=== PATIENT | male | born 1940 | race Caucasian/White ===

== ENCOUNTER → 2020-04-22 08:52 | Outpatient (BNVA) | payer MEDICARE, OTHER, SELFPAY | PROVIDERS: Referring Provider Nurse Practitioner Family; Visit Provider Podiatrist Foot & Ankle Surgery | DX: M79.671 Pain in right foot (principal); M79.672 Pain in left foot; M77.32 Calcaneal spur, left foot; M77.31 Calcaneal spur, right foot | CPT/HCPCS: 73630 ==

== ENCOUNTER → 2020-06-18 08:53 | Outpatient (BNVA) | payer MEDICARE, OTHER, SELFPAY | PROVIDERS: Referring Provider Dermatology; Visit Provider Dermatology | DX: L57.0 Actinic keratosis (principal); L82.1 Other seborrheic keratosis; L21.9 Seborrheic dermatitis, unspecified; Z12.83 Encounter for screening for malignant neoplasm of skin | CPT/HCPCS: 17000; 17003; 99203 ==

== ENCOUNTER 2020-09-23 12:25 | Outpatient (CLI) | payer MEDICARE, OTHER, SELFPAY ==
[2020-09-23 13:01] LABS: Basophils # 0.1 10^3/uL (0.0-0.1); Basophils % 0.8 %; Hematocrit 47.1 % (42.0-52.0); Hemoglobin 15.3 g/dL (11.7-16.6); Lymphocytes # 2.6 10^3/uL (0.8-4.8); Lymphocytes % 29.8 %; Mean Corpuscular HGB Conc 32.5 g/dL (30.0-36.0); Mean Corpuscular Hemoglobin 29.1 pg (28.0-34.0); Mean Corpuscular Volume 89.5 fL (80-94); Mean Platelet Volume 10.8 fL (7.4-10.4); Monocytes # 0.6 10^3/uL (0.2-0.9); Monocytes % 7.3 %; Neutrophils # 5.31 10^3/uL (1.8-7.7); Neutrophils % 61.8 %; Nucleated Red Blood Cells % 0 %; Platelet Count 197 10^3/cmm (130-400); Red Blood Count 5.26 10^6/uL (4.1-5.3); Red Cell Distribution Width 13.6 % (12.1-15.1); White Blood Count 8.6 10^3/uL (4.0-10.0)
[2020-09-23 13:40] LABS: 25 Hydroxy Vitamin D 27 ng/mL (30-100); Alanine Aminotransferase 14 U/L (0-41); Albumin Level 4.1 g/dL (3.5-5.2); Alkaline Phosphatase 52 IU/L (40-130); Anion Gap 10.8 (5-19); Aspartate Amino Transferase 17 U/L (0-40); Blood Urea Nitrogen 17 mg/dL (8-23); Calcium 9.3 mg/dL (8.5-10.5); Carbon Dioxide 29 mmol/L (22-29); Chloride 95 mmol/L (98-107); Globulin 2.4 g/dL (1.3-4.6); Glucose 95 mg/dL (65-115); Osmolality Calculated 273 mOsm/kg (285-295); Potassium 3.8 mmol/L (3.5-5.1); Sodium 131 mmol/L (136-145); Total Bilirubin 0.6 mg/dL (0.15-1.2); Total Protein 6.5 g/dL (6.6-8.7)
[2020-09-23 14:06] LABS: Carcinoembryonic Antigen 1.8 ng/mL (0.0-4.7)
--- NOTE | 2020-09-27 11:55 | ONC FU_ITS ---
Dr. Lynne Patient Follow-Up Note Patient: Rosana Ruiz Unit #: [id number]: 1940 Dicatated By: Keith Lynne M.D.Date of Visit:Sep 23, 2020 Onc Med Follow-up/Prog Note Chief Complaint: Colon cancer. 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 He had presented with rectal bleeding. Colonoscopy showed a 4-5 cm malignant mass in the cecum. CEA was reportedly low. On 11/07/2014 he underwent right hemicolectomy by Dr. Lance in [place], [place]. The surgical pathology showed 3.2 cm transmural moderately differentiated adenocarcinoma with lymphovascular invasion, minimal extracellular mucin production, and negative margins. A total of 28 lymph nodes harvested were negative for metastatic disease. MSI status was not available. His staging PET/CT on 12/01/2014 was negative for metastatic disease. He was evaluated by Dr. Dumont. No adjuvant chemotherapy was recommended. He has been followed on observation/expectant management. His other medical illnesses include hypertension, hyperlipidemia, and GERD. He has a history of smoking 1 pack of cigarettes daily for 25 years, but he quit smoking 35 years ago. INTERIM HISTORY: Restaging CT of the abdomen and pelvis on 02/06/2016 was negative for metastatic disease. It showed significant coronary artery atherosclerosis, mild splenomegaly and multiple cystic stable renal cysts. CEA was 1.2. He had surveillance colonoscopy in January 2016. Surveillance CT scans of chest, abdomen, and pelvis on 08/13/2017 showed no evidence of tumor recurrence. There was a new compression fracture deformity of the T9 vertebral body with estimated 15-20% loss of height. Dexa scan on 08/23/2017 showed T-score 0.1 in the lumbar spine and -1.9 in both right and left hips. Repeat CT scans of the chest, abdomen, and pelvis on 08/08/2018 showed no evidence of recurrent or metastatic disease. Surveillance CT scans on 09/14/2019 showed no evidence of a neoplastic process in the chest, abdomen, or pelvis. Repeat DEXA scan showed T score -2.0 and the left proximal femur and -2.1 in the right proximal femur. He continued on observation/expectant management. He is seen for a followup visit. He has been feeling pretty good generally. His energy level is okay. He is able to do light work. ECOG score is 1. Appetite is good. He has no fever or night sweats. He has a little bit of a COPD cough. He does not complain of shortness of breath or chest pain. He always has acid reflux, but he manages adequately with [id number] Pepcid. He has no other GI complaints. Bladder function remains adequate though he does tend to have urgency at night. He has arthritis pain in his right knee. He has neuropathy in his lower legs and feet. Medications: Cholecalciferol 1 (3000 Units) Tablet Oral daily, Crestor Tablet Oral daily, Diclofenac Potassium Tablet Oral, Lisinopril-Hydrochlorothiazide Tablet Oral daily, Norvasc 1 (5 mg) Tablet Oral daily, RaNITidine HCl Capsule Oral b.i.d., Spiriva Respimat 1 Puff(s) (of 1.25 mcg/act) Aerosol, solution Inhalation b.i.d., Timolol Maleate 1 (10 mg) Tablet Oral daily Allergies: No Known Allergies. Review of Systems: Constitutional - His energy has been okay. He still does light work. Appetite is good and weight is stable. No fever, night sweats, or hot flashes. ECOG score is 1, ENMT - No sinus congestion/drainage. No mouth sores. No sore throat or difficulty swallowing, Hematologic/Lymphatic - No abnormal bruising or bleeding, Respiratory - No shortness of breath. He has a little bit of COPD cough. No pleuritic pain or hemoptysis, Cardiovascular - No angina pain. No palpitations, Gastrointestinal - No nausea or vomiting. He always has acid reflux, but he manages it adequately with [id number] Pepcid. No diarrhea or constipation. No blood in the stool or black stools, Genitourinary (M) - No dysuria or hematuria. No urinary frequency. He sometimes has urgency, but no incontinence, Musculoskeletal - He has some joint pain, mainly in his right knee and in his feet, Neurologic - No headache or dizziness. He has some neuropathy in the lower legs and feet, Psychiatric - No anxiety or depression. No insomnia. Vital Signs: Performed on Sep 23, 2020 14:19 Height - 72.00 in Weight - 221.8 lbs (LOW) BSA - 2.23 sq.m BMI - 30.08 (HIGH) Temperature - 97.5 F (LOW) Respiration - 18 /min BP - 155/83 mm(hg) (HIGH) Physical Examination: Constitutional - He looks good generally, Eyes - Sclerae nonicteric. Conjunctivae clear, ENMT - No lesions noted in the oral cavity, Hematologic/Lymphatic - No cervical, clavicular, or axillary adenopathy, Respiratory - Lungs are clear with slightly diminished air movement bilaterally, Cardiovascular - Heart rhythm is regular. There is no murmur, gallop, or rub noted, Abdomen - Soft. Liver and spleen are not enlarged. There is no abdominal mass or ascites noted and there is no inguinal adenopathy, Extremities - There are venous stasis changes bilaterally and there is mild lower extremity edema, Neurologic - No focal neurologic deficits noted. Lab/Imaging: Test performed on Sep 23, 2020 12:38 Sodium 131 mmol/L Vitamin D (25-Hydroxy), Total 27 ng/mL Potassium 3.8 mmol/L Chloride 95 mmol/L CO2 29 mmol/L Anion Gap 10.8 BUN 17 mg/dL Creatinine 1.1 mg/dL Cr Clearance (Est) 78.76 mL/min Glucose 95 mg/dL Osmolality - Calculated 273 mOsm/kg Calcium 9.3 mg/dL Protein, Total 6.5 g/dL Albumin 4.1 g/dL Globulin 2.4 g/dL Bilirubin, Total 0.6 mg/dL ALT (SGPT) 14 U/L AST (SGOT) 17 U/L Alkaline Phosphatase 52 IU/L WBC 8.6 10 3/uL RBC 5.26 10 6/uL HGB 15.3 g/dL HCT 47.1 % MCV 89.5 fL MCH 29.1 pg MCHC 32.5 g/dL RDW 13.6 % Platelet Count 197 10 3/cmm MPV 10.8 fL Neutrophils 5.31 10 3/uL Lymphocytes 2.6 10 3/uL Monocytes 0.6 10 3/uL Eosinophils 0.0 10 3/uL Basophils 0.1 10 3/uL Neutrophil % 61.8 % Lymphocyte % 29.8 % Monocyte % 7.3 % Eosinophil % 0.0 % Basophils % 0.8 % NRBC % 0 % CEA 1.8 ng/mL Impression: 1. 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 2. He underwent right hemicolectomy on 11/07/2014. A total of 28 lymph nodes were harvested, all negative. He has been followed on observation/expectant management. His other medical illnesses include: 3. Hypertension. 4. Hyperlipidemia. 5. GERD. 6. Chronic kidney disease. 7. Osteopenia. He had back pain following a fall and back injury in June 2017. His surveillance CT scans in July 2017 showed evidence of a new compression deformity of the T9 vertebral body. A subsequent Dexa scan showed T score -1.9 in both hips. He then started treatment with Fosamax. During follow-up he also developed some chronic kidney disease. As of his follow-up visit in August 2019 there was no evidence of recurrence by surveillance CT scans or by clinical evaluation. He has since then remained stable clinically. Plan: He remains on observation/expectant management. He is advised to continue her vitamin D3 supplement daily. [facility] I will plan to see him again only as needed. Signed By: Keith Lynne M.D. <<Signature on File>>
== END 2020-09-23 12:26 | disposition home or self-care (01) ==
LOC: ONCMED 12:30
PROVIDERS: Visit Provider Internal Medicine Medical Oncology
DX: Z08 Encounter for follow-up examination after completed treatment for malignant neoplasm (principal); Z85.038 Personal history of other malignant neoplasm of large intestine; I10 Essential (primary) hypertension; E78.5 Hyperlipidemia, unspecified; K21.9 Gastro-esophageal reflux disease without esophagitis; N18.9 Chronic kidney disease, unspecified; M85.80 Other specified disorders of bone density and structure, unspecified site; E55.9 Vitamin D deficiency, unspecified
CPT/HCPCS: 36415; 80053; 82306; 82378; 85025; G0463

== ENCOUNTER 2020-12-14 14:50 | Inpatient (IN) | payer MEDICARE, OTHER, SELFPAY ==
[2020-12-14] VITALS (10 sets, daily range): BP systolic 128–152; BP diastolic 73–88; PULSE 66–86; RESP 16–18; TEMP 36.7–37.2; O2SAT 95–98; BMI 28.5
--- NOTE | 2020-12-14 14:51 | ECG_ITS ---
[facility] Test Date: 2020-12-14 Pat Name: Rosana Ruiz Department: Room: Gender: Male Applied Behavior Specialist: : 1940 Requested By: Spenser Benedict Order Number: [id number] Reading MD: JHOANA SPRAGUE Measurements Intervals [place] Rate: 70 P: 63 WA: 170 QRS: -14 QRSD: 90 T: 31 QT: 403 QTc: 437 Interpretive Statements SINUS RHYTHM Compared to ECG 09/16/2018 08:53:54 No significant changes Electronically Signed On 12-14-2020 18:15:[address] ENGINEER by JHOANA SPRAGUE [id number]
--- NOTE | 2020-12-14 14:51 | XRR_ITS ---
PROCEDURE INFORMATION: Exam: XR Left Hip with Pelvis when Performed Exam date and time: 12/14/2020 3:29 PM Age: 80 years old Clinical indication: Injury or trauma; Fall; Blunt trauma (contusions or hematomas); Left; Hip; Additional info: Pain TECHNIQUE: Imaging protocol: XR Left hip with pelvis when performed. Views: 2 or 3 views. Total images: 3 COMPARISON: CT Chest/Abdomen/Pelvis wo IV 09/14/2019 3:31 PM FINDINGS: Bones/joints: Comminuted intratrochanteric fracture left hip with mild coxa vera deformity and maximum displacement 11 mm. Fragmentation of the lesser trochanter. Previous vertebroplasty L4. Soft tissues: Unremarkable. XR/XR hip LT 2-3V wo/w pel* [id number] IMPRESSION: Comminuted intertrochanteric fracture left hip.
--- NOTE | 2020-12-14 14:51 | XRR_ITS ---
PROCEDURE INFORMATION: Exam: XR Chest, 1 View Exam date and time: 12/14/2020 3:29 PM Age: 80 years old Clinical indication: Dyspnea; Additional info: Dyspnea/cough TECHNIQUE: Imaging protocol: XR of the chest Views: 1 view. Total images: 1 COMPARISON: CT Chest/Abdomen/Pelvis wo IV 09/14/2019 3:31 PM FINDINGS: Lungs: No visible active interstitial or alveolar airspace disease. Pleural space: Unremarkable. No pleural effusion. No pneumothorax. Heart/Mediastinum: Cardiomegaly. Bones/joints: Left shoulder synovial osteochondromas. XR/XR chest 1V portable [id number] IMPRESSION: No radiographic evidence of active cardiopulmonary process.
--- NOTE | 2020-12-14 14:52 | ED_ITS ---
HPI - Fall General: Chief Complaint: Fall Stated Complaint: possible left hip fx Time Seen by Provider: 12/14/20 14:51 History of Present Illness: HPI Narrative: 80 yr old male presents emergency room via EMS with complaint of left hip pain and possible fracture. He tripped over a sewing machine while walking from one room to the other he had just started eating lunch before this happened. He did not strike his head he did not lose consciousness denies any other injury. He has chronic problems with his left knee and was actually hoping to have a knee arthroplasty done soon. complaint: fall Onset (ago): minute(s) Fall from: standing Fall witnessed: yes, by family Place fall occurred: home Loss of consciousness: None Prolonged down time: no Symptoms prior to fall: none Context: tripped/slipped Location of injury: other (Left hip) Severity: severe Quality: sharp Associated symptoms-after fall: Reports difficulty walking (Severe osteoarthritis left knee prior to fall today, likely contributed to); Denies abdominal pain, chest pain, confusion, headache(s), hematuria, lightheadedness, neck pain, numbness, short of breath, vertigo or weakness Review of Systems Const: Denies: fever(s), chills, body aches, change in appetite, fatigue or malaise ENMT: Denies: throat pain, ear or mastoid pain, nasal discharge or nasal congestion Card: Denies: chest pain or lightheadedness Resp: Denies: dyspnea, productive cough or non-productive cough GI: Denies: abdominal pain : Denies: hematuria Musc: Denies: neck pain Skin/Breast: Denies: rash or pruritus Neuro: Reports: difficulty walking (Severe osteoarthritis left knee prior to fall today, likely contributed to); Denies: headache(s), vertigo or confusion PFS ED PFSH: Medical History (Updated 12/14/20 @ 17:19 by Rafat Williamson MD) Colon cancer Hypertension Surgical History H/O hernia repair History of colon resection History of kyphoplasty S/P tonsillectomy Family History Father Hypertension Other CAD (coronary artery disease) Cancer Denies family history of Diabetes Social History Smoking and tobacco status: former smoker Alcohol intake: current Alcohol intake frequency: holidays/special occasions only History of recent travel: Yes ([place]) Physical Exam Const: COMMON NORMALS: no acute distress GENERAL APPEARANCE: cooperative and comfortable ORIENTATION/CONSCIOUSNESS: Yes awake, Yes oriented to person, Yes oriented to place and Yes oriented to time Eye: COMMON NORMALS: Equal, round and reactive pupils present, EOMs intact bilaterally, conjunctivae normal and no scleral icterus CONJUNCTIVA: Yes conjunctivae normal PUPIL: Yes Equal, round and reactive pupils present Neck/C-Spine: COMMON NORMALS: full ROM, no lymphadenopathy, supple and no JVD Lymph: LYMPHATIC: no lymphadenopathy noted and no lymphedema noted Resp: COMMON NORMALS: normal respiratory effort, No retractions, No use of accessory muscles and clear to auscultation bilaterally AUSCULTATION: clear to auscultation bilaterally Cardio: COMMON NORMALS: no JVD, regular rate, regular rhythm and No murmurs present (Cardio) RATE: regular rate RHYTHM: regular rhythm GI: COMMON NORMALS: Soft to palpation and No hepatosplenomegaly present AUSCULTATION: Yes normoactive bowel sounds PALPATION: Yes Soft to palpation, No Tenderness to palpation present (GI), No Guarding due to palpation present (GI) and Yes No hepatosplenomegaly present Extremity: NARRATIVE EXTREMITY EXAM: Left hip externally rotated and shortened it is padded on arrival here to a position of comfort. He has good dorsalis posterior tibialis pulses normal sensation good motion at the toes and ankle. Neuro: SENSORIUM/ORIENTATION: Yes oriented to person, Yes oriented to place and Yes oriented to time Skin: COMMON NORMALS: no rashes or lesions noted GENERAL SKIN EXAM: no rashes or lesions noted Course Vital Signs: Vital signs: Vital Signs Temperature 99.0 F 12/14/20 16:59 Pulse Rate 81 12/14/20 16:59 Respiratory Rate 18 12/14/20 16:59 Blood Pressure 146/78 12/14/20 16:59 Pulse Oximetry 95 12/14/20 16:59 MDM - Fall MDM Narrative: Medical decision making narrative: Intertrochanteric hip fracture on the left. Patient had just been eating prior to the fall he did eat about half of his lunch discussed Dr. Hanane as well the hospitalist will admit anticipate surgical reduction and fixation tomorrow in the operating room since he has just eaten. Orders are written. Patient had some hematuria however believes is from traumatic catheterization he has not had any urinary symptoms prior to the catheterizing. Lab Data: Labs: Lab Results 12/14/20 12/14/20 12/14/20 Range/Units 15:12 15:12 15:38 WBC 11.8 H (4.0-10.0) 10^3/ uL RBC 5.30 (4.1-5.3) 10^6/u L Hgb 15.6 (11.7-16.6) g/dL Hct 47.2 (42.0-52.0) % MCV 89.1 (80-94) fL MCH 29.4 (28.0-34.0) pg MCHC 33.1 (30.0-36.0) g/dL RDW 13.3 (12.1-15.1) % Plt Count 194 (130-400) 10^3/c mm MPV 10.3 (7.4-10.4) fL Neut % (Auto) 74.0 % Lymph % (Auto) 18.8 % Wake % (Auto) 6.3 % Eos % (Auto) 0.0 % Baso % (Auto) 0.5 % Neut # (Auto) 8.77 H (1.8-7.7) 10^3/u L Lymph # (Auto) 2.2 (0.8-4.8) 10^3/u L Wake # (Auto) 0.7 (0.2-0.9) 10^3/u L Eos # (Auto) 0.0 (0.0-0.8) 10^3/u L Baso # (Auto) 0.1 (0.0-0.1) 10^3/u L Nucleated RBC % (a uto) 0 % Nucleated RBCs # 0.0 /100WBC Sodium 131 L (136-145) mmol/L Potassium 3.7 (3.5-5.1) mmol/L Chloride 94 L (98-107) mmol/L Carbon Dioxide 28 (22-29) mmol/L Anion Gap 12.7 (5-19) BUN 13 (8-23) mg/dL Creatinine 1.0 (0.7-1.2) mg/dL GFR Calculation Not Reportable Glucose 119 H (65-115) mg/dL Calculated Osmolal ity 273 L (285-295) mOsm/k g Calcium 9.3 (8.5-10.5) mg/dL Total Bilirubin 0.7 (0.15-1.2) mg/dL AST 18 (0-40) U/L ALT 17 (0-41) U/L Alkaline Phosphata se 51 (40-130) IU/L Creatine Kinase 141 (39-308) U/L Total Protein 8.5 (6.6-8.7) g/dL Albumin 4.0 (3.5-5.2) g/dL Globulin 4.5 (1.3-4.6) g/dL Urine Color Yellow (Yellow) Urine Appearance Clear (CLEAR) Urine pH 7 (5-7) Ur Specific Gravit y 1.010 (1.005-1.030) Urine Protein Neg (Negative) Urine Glucose (UA) Norm (Normal) Urine Ketones Negative (Negative) Urine Blood 3+ H (Negative) Urine Nitrate Negative (Negative) Urine Bilirubin Neg (Negative) Urine Urobilinogen Norm (Negative) mg/dL Ur Leukocyte Eryn ase Negative (Negative) Urine RBC 50-80 H (0-2) /hpf Urine WBC 0-4 H (0-5) /hpf Ur Squamous Epith Cells Rare (0-5) /hpf Amorphous Sediment Not Reportable Urine Bacteria Trace (NONE) /hpf Discharge Plan Discharge Patient Disposition: Admitted As Inpatient Admit Provider: Rafat Williamson Clinical Impression: Closed intertrochanteric fracture of left hip, Osteoarthritis of left knee, CO PD (chronic obstructive pulmonary disease), Hypertension Condition: Stable Coding Level of Care Code ED Structural Steel Worker for Manny Hearn
--- NOTE | 2020-12-14 15:07 | PC.NURSE ---
EKG done at 1505 and shown to ER doctor
[2020-12-14 15:21] LABS: Basophils # 0.1 10^3/uL (0.0-0.1); Basophils % 0.5 %; Hematocrit 47.2 % (42.0-52.0); Hemoglobin 15.6 g/dL (11.7-16.6); Lymphocytes # 2.2 10^3/uL (0.8-4.8); Lymphocytes % 18.8 %; Mean Corpuscular HGB Conc 33.1 g/dL (30.0-36.0); Mean Corpuscular Hemoglobin 29.4 pg (28.0-34.0); Mean Corpuscular Volume 89.1 fL (80-94); Mean Platelet Volume 10.3 fL (7.4-10.4); Monocytes # 0.7 10^3/uL (0.2-0.9); Monocytes % 6.3 %; Neutrophils # 8.77 10^3/uL (1.8-7.7); Nucleated Red Blood Cells % 0 %; Platelet Count 194 10^3/cmm (130-400); Red Cell Distribution Width 13.3 % (12.1-15.1); White Blood Count 11.8 10^3/uL (4.0-10.0)
[2020-12-14 15:42] LABS: Alanine Aminotransferase 17 U/L (0-41); Alkaline Phosphatase 51 IU/L (40-130); Aspartate Amino Transferase 18 U/L (0-40); Blood Urea Nitrogen 13 mg/dL (8-23); Calcium 9.3 mg/dL (8.5-10.5); Carbon Dioxide 28 mmol/L (22-29); Chloride 94 mmol/L (98-107); Creatine Phosphokinase 141 U/L (39-308); Globulin 4.5 g/dL (1.3-4.6); Glucose 119 mg/dL (65-115); Osmolality Calculated 273 mOsm/kg (285-295); Sodium 131 mmol/L (136-145); Total Bilirubin 0.7 mg/dL (0.15-1.2); Total Protein 8.5 g/dL (6.6-8.7)
--- NOTE | 2020-12-14 15:56 | PC.PHAR ---
pt brought in medication list-[facility]
[2020-12-14 16:00] LABS: Anion Gap 12.7 (5-19); Potassium 3.7 mmol/L (3.5-5.1)
[2020-12-14 16:33] LABS: Add Urine Microscopic? YES; Bilirubin Urine Neg (Negative); Blood Urine 3+ (Negative); Glucose Urine UA Norm (Normal); Ketones Urine Negative (Negative); Leukocyte Esterase Urine Negative (Negative); Nitrate Urine Negative (Negative); Protein Urine Neg (Negative); Urine Appearance Clear (CLEAR); Urine Color Yellow (Yellow); Urobilinogen Urine Norm (Negative); pH Urine 7 (5-7)
[2020-12-14 16:34] LABS: Add Urine Culture? Yes; Bacteria Urine TRACE /hpf; RBC Urine 50-80 /hpf (0-2); Squamous Epithelial Cell Urine RARE /hpf (0-5); WBC Urine 0-4 /hpf (0-5)
--- NOTE | 2020-12-14 16:39 | PM.HP ---
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 Was brought in by the EMS after having a mechanical fall at home when he was trying to walk to another room.Post fall he is complaining of left hip pain.Post fall there was no loss of consciousness,no dizziness, no presyncopal episode,no palpitation. Upon arrival in the ER he was worked up for the above mentioned complaint. XR hip LT 2-3V: Comminuted intertrochanteric fracture left hip. Xray chest : No visible active interstitial or alveolar airspace disease. Pleural space: Unremarkable. No pleural effusion. No pneumothorax. EKG: Sinus Rhythm , Rate: 70 , AK Intreval : 170 QRSD: 90 QTc: 437 Review of Systems Const: Denies: fever(s), chills, body aches, change in appetite or diaphoresis Card: Denies: palpitations or edema Resp: Denies: dyspnea, productive cough or wheezing GI: Denies: abdominal pain, nausea, vomiting, diarrhea or constipation : Denies: flank pain or difficulty urinating Musc: Denies: back pain or extremity swelling Neuro: Denies: headache(s) or confusion Medications/Allergies Home Medications Medication Instructions Recorded Confirmed Last Taken Type albuterol sulfate 90 mcg/actuation 2 puff INHALATION Q6H PRN 03/21/20 12/14/20 Unknown History aerosol inhaler alendronate 70 mg tablet 70 mg PO Q7D tab 03/21/20 12/14/20 Unknown History amlodipine 5 mg tablet 5 mg PO DAILY@15 03/21/20 12/14/20 12/13/20 History budesonide-formoterol HFA 160 2 puff INHALATION BID@08,22 03/21/20 12/14/20 12/14/20 History mcg-4.5 mcg/actuation aerosol inhaler famotidine 40 mg tablet 40 mg PO BID PRN 03/21/20 12/14/20 12/14/20 History latanoprost (PF) 0.005 % eye drops 1 drop OPHTHALMIC (EYE) BEDTIME 03/21/20 12/14/20 12/13/20 History losartan 100 0.5 tab PO BID@,03/21/20 12/14/20 12/14/20 History mg-hydrochlorothiazide 12.5 mg tablet sildenafil 100 mg tablet 100 mg PO PRN 03/21/20 12/14/20 Unknown History Voltaren 4 gm TOPICAL QID PRN 12/14/20 12/14/20 Unknown History cholecalciferol (vitamin D3) 50 mcg PO DAILY 12/14/20 12/14/20 12/14/20 History [Vitamin D3] diclofenac sodium 75 mg PO BID@,12/14/20 12/14/20 12/14/20 10:00 History Allergies Allergy/AdvReac Type Severity Reaction Status Date / Time Cmulhak-Apy-Nuh Reductase Allergy Intermediate muscle Verified 12/03/20 10:42 Inhibitor twitching lisinopril AdvReac Intermediate cough Verified 12/03/20 10:42 PFSH Acute PFSH: Medical History (Updated 12/14/20 @ 17:19 by Rafat Williamson MD) Colon cancer Hypertension Surgical History H/O hernia repair History of colon resection History of kyphoplasty S/P tonsillectomy Family History Father Hypertension Other CAD (coronary artery disease) Cancer Denies family history of Diabetes Social History Smoking and tobacco status: former smoker Alcohol intake: current Alcohol intake frequency: holidays/special occasions only History of recent travel: Yes ([place]) Vitals/I&O/Wt Last Vital Signs Temp 99.0 F 12/14/20 16:07 Pulse 86 12/14/20 16:07 Resp 18 12/14/20 16:07 BP 152/77 12/14/20 16:07 Pulse Ox 96 12/14/20 16:07 Weight last 48 hrs Weight 95.254 kg Physical Exam Const: COMMON NORMALS: patient oriented x3 HENMT: COMMON NORMALS: normocephalic and atraumatic HEAD & SCALP: normocephalic and atraumatic Chest: COMMONS NORMALS: normal inspection of the chest Resp: COMMON NORMALS: normal respiratory effort and clear to auscultation bilaterally EFFORT & INSPECTION: Yes symmetric chest movement AUSCULTATION: clear to auscultation bilaterally Cardio: COMMON NORMALS: regular rate, regular rhythm, S1 normal heart sound present, S2 normal heart sound present, No gallops present (Cardio), No murmurs present (Cardio), No rub (Cardio) and Peripheral pulses 2+ throughout RATE: regular rate RHYTHM: regular rhythm HEART SOUNDS: S1 normal heart sound present and S2 normal heart sound present PERIPHERAL PULSES: Peripheral pulses 2+ throughout GI: COMMON NORMALS: Normal to inspection, nondistended, normoactive bowel sounds present, Soft to palpation, non-tender, No hepatosplenomegaly present and no masses AUSCULTATION: Yes normoactive bowel sounds PALPATION: Yes Soft to palpation and Yes No hepatosplenomegaly present RECTAL EXAM: Yes deferred Neuro: COMMON NORMALS: patient oriented x3 Data : 12/14/20 15:12 12/14/20 15:12 A&P Assessment and plan (1) Fracture of left hip: Comminuted intertrochanteric fracture left hip S/P Fall. Pain Control Ortho cosult DVT PPX Per Ortho Status: Acute (2) Hypertension: Amlodipine 5 mg po daily Status: Acute (3) Leukocytosis: Likely reactive,deny any cough, sob,fever,urinary complaint. Urine analysis is clean Will order am Procal Hold on ABxs Status: Acute (4) Osteoarthritis of knees, bilateral: Status: Acute Additional A&P Information DVT PPX: Lovenox 40 mg sc daily Code Status :Full code Disposition :SNF Attestations Medical Necessity Statement*: Patint needs to be in hospital for the management of lt hip fracture.Anticipated LOS Greater then 2 midnights Coding Level of Care Code Acute Circuit [facility] Magistrate for Chg Fwd Diagnoses Fracture of left hip S72.002A Hypertension I10 Leukocytosis D72.829 Osteoarthritis of knees, bilateral M17.0
--- NOTE | 2020-12-14 16:55 | P.ANESASSM_ITS ---
Pre-Anesthetic Assessment Pre-Anesthetic Assessment: Height/Weight: Height 1.83 m Weight 95.254 kg Temp Pulse Resp BP Pulse Ox 99.0 F 86 18 152/77 96 12/14/20 16:07 12/14/20 16:07 12/14/20 16:07 12/14/20 16:07 12/14/20 16:07 Preop Diagnosis: Hip fracture Proposed Procedure: ORIF hip fracture Familial anesthetic complications: None Was Beta Immanuel taken within 24 hours: N/A Last intake: Patient ate lunch just before arrival in ER Social: Social History: No alcohol and No tobacco Comment: former smoker Exam: Pre-Anes Outpt Exam: alert, oriented x 3, clear to auscultation b ilaterally and regular rate & rhythm Airway: Cervical ROM: WNL MP: 3 Dentition: Full Pulmonary: Pulmonary: COPD CV/HEM: CV/HEM: HTN GI: GI: GERD Anesthetic Plan: ASA status: 2 Anesthesia: General Other: Patient declined spinal, saying they tried to get one on him before, but they weren't able to Risk of > 500 ml blood loss (7ml/kg in children): No PFSH Anesthesia PFSH: Medical History Colon cancer Hypertension Surgical History H/O hernia repair History of colon resection History of kyphoplasty S/P tonsillectomy Family History Father Hypertension Other CAD (coronary artery disease) Cancer Denies family history of Diabetes Social History Smoking and tobacco status: former smoker Alcohol intake: current Alcohol intake frequency: holidays/special occasions only History of recent travel: Yes ([place]) Data Anesthesia CBC & Chem 7: 12/14/20 15:12 12/14/20 15:12 Other Labs: Laboratory Results - last 48 hr 12/14/20 12/14/20 12/14/20 15:12 15:12 15:38 WBC 11.8 H RBC 5.30 Hgb 15.6 Hct 47.2 MCV 89.1 MCH 29.4 MCHC 33.1 RDW 13.3 Plt Count 194 MPV 10.3 Neut % (Auto) 74.0 Lymph % (Auto) 18.8 [place] % (Auto) 6.3 Eos % (Auto) 0.0 Baso % (Auto) 0.5 Neut # (Auto) 8.77 H Lymph # (Auto) 2.2 [place] # (Auto) 0.7 Eos # (Auto) 0.0 Baso # (Auto) 0.1 Nucleated RBC % (auto) 0 Nucleated RBCs # 0.0 Sodium 131 L Potassium 3.7 Chloride 94 L Carbon Dioxide 28 Anion Gap 12.7 BUN 13 Creatinine 1.0 GFR Calculation Not Reportable Glucose 119 H Calculated Osmolality 273 L Calcium 9.3 Total Bilirubin 0.7 AST 18 ALT 17 Alkaline Phosphatase 51 Creatine Kinase 141 Total Protein 8.5 Albumin 4.0 Globulin 4.5 Urine Color Yellow Urine Appearance Clear Urine pH 7 Ur Specific [place] 1.010 Urine Protein Neg Urine Glucose (UA) Norm Urine Ketones Negative Urine Blood 3+ H Urine Nitrate Negative Urine Bilirubin Neg Urine Urobilinogen Norm Ur Leukocyte Esterase Negative Urine RBC 50-80 H Urine WBC 0-4 H Ur Squamous Epith Cells Rare Amorphous Sediment Not Reportable Urine Bacteria Trace Cardiac Studies: No Data to Display
--- NOTE | 2020-12-14 17:43 | P.CONIM_ITS ---
Providers/Reason For Consult Consulting Physican/Specialty*: Kamari Koo MD Reason for Consult*: Left intratrochanteric hip fracture Attending Physician: Rafat Williamson MD History of Present Illness History of Present Illness Rosana Ruiz is a 80 year old male who tripped and fell at home with resulting pain in his left hip and inability to bear weight. He was transferred to the emergency room radiographs revealed a intratrochanteric left hip fracture. The patient is also treated for stage IIa adenocarcinoma of the colon. He has osteoarthritis in his right knee was actually considered right total knee arthroplasty but certainly that is delayed Meds/Allergies Home Medications and Allergies Home Medications Medication Instructions Recorded Confirmed Last Taken Type albuterol sulfate 90 mcg/actuation 2 puff INHALATION Q6H PRN 03/21/20 12/14/20 Unknown History aerosol inhaler alendronate 70 mg tablet 70 mg PO Q7D tab 03/21/20 12/14/20 Unknown History amlodipine 5 mg tablet 5 mg PO DAILY@15 03/21/20 12/14/20 12/13/20 History budesonide-formoterol HFA 160 2 puff INHALATION BID@03/21/20 12/14/20 12/14/20 History mcg-4.5 mcg/actuation aerosol inhaler famotidine 40 mg tablet 40 mg PO BID PRN 03/21/20 12/14/20 12/14/20 History latanoprost (PF) 0.005 % eye drops 1 drop OPHTHALMIC (EYE) BEDTIME 03/21/20 12/14/20 12/13/20 History losartan 100 0.5 tab PO BID@03/21/20 12/14/20 12/14/20 History mg-hydrochlorothiazide 12.5 mg tablet sildenafil 100 mg tablet 100 mg PO PRN 03/21/20 12/14/20 Unknown History Voltaren 4 gm TOPICAL QID PRN 12/14/20 12/14/20 Unknown History cholecalciferol (vitamin D3) 50 mcg PO DAILY 12/14/20 12/14/20 12/14/20 History [Vitamin D3] diclofenac sodium 75 mg PO BID@,12/14/20 12/14/20 12/14/20 10:00 History Allergies Allergy/AdvReac Type Severity Reaction Status Date / Time Tmkdykf-Ror-Mov Reductase Allergy Intermediate muscle Verified 12/03/20 10:42 Inhibitor twitching lisinopril AdvReac Intermediate cough Verified 12/03/20 10:42 PFSH Acute PFSH: Medical History (Updated 12/14/20 @ 17:48 by Kamari Koo MD) Colon cancer Hypertension Surgical History H/O hernia repair History of colon resection History of kyphoplasty S/P tonsillectomy Family History Father Hypertension Other CAD (coronary artery disease) Cancer Denies family history of Diabetes Social History Smoking and tobacco status: former smoker Alcohol intake: current Alcohol intake frequency: holidays/special occasions only History of recent travel: Yes ([place]) Vitals/I&O/Wt Last Vital Signs Temp 99.0 F 12/14/20 16:59 Pulse 81 12/14/20 16:59 Resp 18 12/14/20 16:59 BP 146/78 12/14/20 16:59 Pulse Ox 95 12/14/20 16:59 Weight last 48 hrs Weight 210 lb Physical Exam Narrative: EXAM NARRATIVE: Mr. Ruiz is a supine in bed with shortening and external rotation of the left hip. He has exquisite pain with motion of the left hip. He has a strong left dorsalis pedis pulse. He will flex and extend his toes and ankle without motor deficits Sensation is intact to light touch in the left foot. Data Imaging^: Xray Ortho: My impression: Radiographs of the left hip are personally reviewed from the emergency room revealing a comminuted left intertrochanteric fracture with varus alignment and involvement into the lesser trochanter. A&P Assessment and plan (1) Intertrochanteric fracture of left hip: I discussed options with the patient.. I told the patient we could treat this nonoperatively but certainly they would be at risk for medical problems without surgery. Theywould have problems with pain that would require narcotics for pain control. They would require a long period of bedrest adoption services manager risk for pneumonia and skin breakdown. I discussed surgical intervention with the patient. I told them with open reduction internal fixation they should be able to be mobilized and resume ambulatory status. We can eliminate the problems associated with prolonged bed rest and would have better control of pain. Certainly there would be inherent risk with surgery. These would would include the risk of cardiac complications, stroke, infection, and even . I discussed risk of any orthopedic implant including nonunion, malunion, a component failure. I discussed the possible need for component removal. I discussed risk of deep venous thromboses and pulmonary emboli that are present with any treatment and the importance of DVT prophylaxis. The patient expressed good understanding of alternative treatments, seem to comprehend, and agrees to surgical intervention. Status: Acute Coding Level of Care Code Acute Sr Vice President for Manny Hearn Diagnoses Intertrochanteric fracture of left hip S72.142A
[2020-12-14 17:57] LABS: INR 1.08 (0.8-1.2)
[2020-12-14 17:58] LABS: Partial Thromboplastin Time 30.6 SECONDS (23.9-36.7)
[2020-12-14] MEDS: morphine 4 mg/mL SDV 1 mL 2 MG IVP (18:32)
[2020-12-14] MEDS: enoxaparin 40 mg/0.4 mL Syringe SUBCUT (18:32)
[2020-12-14] MEDS: D5-NS 0.45% + KCL 20 mEq 20 MEQ/1,000 ML BAG 75 MEQ IV (18:32)
[2020-12-14] MEDS: albuterol 8 gm MDI 2 PUFF INHALATION (20:06)
[2020-12-14] MEDS: latanoprost 0.005% Op Soln 2.5 mL Btl 1 DROP EYE-BOTH (20:17)
[2020-12-14] MEDS: HYDROcodone-acetaminophen 5-325 mg Tablet 1 TAB PO (20:17)
[2020-12-14] MEDS: famotidine 20 mg Tablet PO (20:17)
[2020-12-14] MEDS: hydroCHLOROthiazide 25 mg Tablet 12.5 MG PO (22:59)
[2020-12-14] MEDS: losartan 50 mg Tablet PO (22:59)
[2020-12-15] VITALS (25 sets, daily range): BP systolic 106–164; BP diastolic 62–86; PULSE 69–96; RESP 15–22; TEMP 36.3–37.4; O2SAT 90–97
--- NOTE | 2020-12-15 | SCC_ITS ---
Procedure Done: Open reduction internal fixation left hip 65.7 seconds of fluoroscopic guidance, for a cumulative dose of 5.02 mGy, was provided to Dr. Koo by the radiology department. C-arm images of the LEFT hip were saved for the patient's permanent record. EFRA
--- NOTE | 2020-12-15 | XR_ITS ---
Exam: XR hip LT 2-3V wo/w pel* [id number] Date/Time of Exam: 12/15/2020 8:00 AM 65.7 seconds of fluoroscopy utilized during this exam. Reason For Exam: FX REPAIR Intraoperative C-arm images of the left hip in the AP and lateral projection are submitted for evaluation. An intramedullary sergey and femoral neck screw are in place in excellent position. Previously noted intertrochanteric fracture of the left hip is stabilized in satisfactory alignment for healing. Surgical skin clips are noted laterally. MTDD
[2020-12-15] MEDS: HYDROcodone-acetaminophen 5-325 mg Tablet 1 TAB PO ×5 (00:20→20:23)
[2020-12-15 05:19] LABS: Basophils % 0.4 %; Hematocrit 38.8 % (42.0-52.0); Hemoglobin 12.9 g/dL (11.7-16.6); Lymphocytes # 2.6 10^3/uL (0.8-4.8); Mean Corpuscular HGB Conc 33.2 g/dL (30.0-36.0); Mean Corpuscular Hemoglobin 29.7 pg (28.0-34.0); Mean Corpuscular Volume 89.2 fL (80-94); Mean Platelet Volume 11.4 fL (7.4-10.4); Monocytes # 0.9 10^3/uL (0.2-0.9); Monocytes % 8.9 %; Neutrophils # 6.39 10^3/uL (1.8-7.7); Neutrophils % 64.4 %; Nucleated Red Blood Cells % 0 %; Platelet Count 172 10^3/cmm (130-400); Red Blood Count 4.35 10^6/uL (4.1-5.3); Red Cell Distribution Width 13.2 % (12.1-15.1); White Blood Count 9.9 10^3/uL (4.0-10.0)
[2020-12-15 05:49] LABS: NT Pro B Type Natriuretic Pept 172 pg/mL (0-450); Procalcitonin 0.09 ng/mL (0-0.5)
[2020-12-15 06:05] LABS: Alanine Aminotransferase 13 U/L (0-41); Albumin Level 3.1 g/dL (3.5-5.2); Alkaline Phosphatase 38 IU/L (40-130); Anion Gap 10.7 (5-19); Aspartate Amino Transferase 13 U/L (0-40); Blood Urea Nitrogen 13 mg/dL (8-23); Calcium 8.8 mg/dL (8.5-10.5); Carbon Dioxide 28 mmol/L (22-29); Chloride 97 mmol/L (98-107); Globulin 2.1 g/dL (1.3-4.6); Glucose 122 mg/dL (65-115); Osmolality Calculated 275 mOsm/kg (285-295); Potassium 3.7 mmol/L (3.5-5.1); Sodium 132 mmol/L (136-145); Total Bilirubin 0.5 mg/dL (0.15-1.2); Total Protein 5.2 g/dL (6.6-8.7)
--- NOTE | 2020-12-15 06:31 | PC.NURSE ---
In room to give patient Chlorhexidine scrub for surgery this morning and patient states, I want to do it if you don't mind. Patient informed not to was his private areas or his face with the wipes. Patient verbalized understanding.
--- NOTE | 2020-12-15 07:29 | PM.PN ---
Subjective Subjective: Interval history: is doing well he is complaining of some pain on the lateral aspect of upper thigh. S/P : Open reduction internal fixation left hip. Vitals and labs have been reviewed. Vitals/I&O/Wt Last Vital Signs Temp 98.4 F 12/15/20 07:04 Pulse 71 12/15/20 07:04 Resp 17 12/15/20 07:04 BP 119/70 12/15/20 07:04 Pulse Ox 94 12/15/20 07:04 12/14/20 12/15/20 12/15/20 22:59 06:59 14:59 Intake Total 50 / 50 Output Total 1800 / 1800 Balance 50 / 50 -1800 / -1750 Weight last 48 hrs Weight 95.254 kg Physical Exam HENMT: COMMON NORMALS: normocephalic and atraumatic HEAD & SCALP: normocephalic and atraumatic Resp: COMMON NORMALS: clear to auscultation bilaterally AUSCULTATION: clear to auscultation bilaterally Cardio: COMMON NORMALS: regular rate, regular rhythm, S1 normal heart sound present, S2 normal heart sound present, No gallops present (Cardio), No murmurs present (Cardio), No rub (Cardio) and Peripheral pulses 2+ throughout RATE: regular rate RHYTHM: regular rhythm HEART SOUNDS: S1 normal heart sound present and S2 normal heart sound present PERIPHERAL PULSES: Peripheral pulses 2+ throughout GI: COMMON NORMALS: Normal to inspection, nondistended, normoactive bowel sounds present, Soft to palpation, non-tender, No hepatosplenomegaly present and no masses AUSCULTATION: Yes normoactive bowel sounds PALPATION: Yes Soft to palpation and Yes No hepatosplenomegaly present RECTAL EXAM: Yes deferred Extremity: NARRATIVE EXTREMITY EXAM: shortening and external rotation of the left hip.2 + B/L DPA, sensations intact B/L. Urinary Catheter Management^: Khan: Cath Placed During This Visit: no Reason for Continuing Indwelling Catheter: Other Data : 12/15/20 04:20 12/15/20 04:20 A&P Assessment and plan (1) Fracture of left hip: Comminuted intertrochanteric fracture left hip S/P Fall. S/P: Open reduction internal fixation left hip. Pain Control Appreciate Ortho cosult DVT PPX Per Ortho Status: Deleted (2) Hypertension: Amlodipine 5 mg po daily Losartan 50Mg PO BID HCTZ 12.5 Mg oral daily Status: Acute (3) Leukocytosis: Resolved Likely reactive,deny any cough, sob,fever,urinary complaint. Urine analysis is clean Procal:0.09 Currently empirically on cefazolin 2gm I.V Q8 H Daily per ortho Status: Acute (4) Osteoarthritis of knees, bilateral: Status: Acute Additional A&P Information DVT PPX: Lovenox 40 mg sc daily Code Status :Full code Disposition :SNF Attestations Medical Necessity Statement*: atient needs to be in hospital for the management of lt hip fracture Coding Level of Care Code Acute Automotive Manufacturer for g Fwd Diagnoses Fracture of left hip S72.002A Hypertension I10 Leukocytosis D72.829 Osteoarthritis of knees, bilateral M17.0
[2020-12-15 07:38] LABS: Magnesium 1.9 mg/dL (1.7-2.3)
[2020-12-15] MEDS: sodium chloride 0.9% 1,000 ML 30 ML IV (07:53)
--- NOTE | 2020-12-15 07:55 | P.ANESUD_ITS ---
Pre-Anesthetic Update Pre-Anesthetic Assessment: Date of Surgery/Procedure: 12/15/20 Preop Tanisha gnosis: Hip fracture Proposed Procedure: Operation Date: 12/15/20 08:20 Proposed Procedures p Open Reduction Hip(Left) - Kamari Koo MD Any changes to Pre-Anesthetic Assessment?: No Last Intake: Intake Last Liquid Date 12/14/20 Last Liquid Time 23:45 Last Solid Date 12/14/20 Last Solid Time 22:30 Labs Last 48hrs: Laboratory Results - last 48 hr 12/14/20 12/14/20 12/14/20 15:12 15:12 15:38 WBC 11.8 H RBC 5.30 Hgb 15.6 Hct 47.2 MCV 89.1 MCH 29.4 MCHC 33.1 RDW 13.3 Plt Count 194 MPV 10.3 Neut % (Auto) 74.0 Lymph % (Auto) 18.8 [place] % (Auto) 6.3 Eos % (Auto) 0.0 Baso % (Auto) 0.5 Neut # (Auto) 8.77 H Lymph # (Auto) 2.2 [place] # (Auto) 0.7 Eos # (Auto) 0.0 Baso # (Auto) 0.1 Nucleated RBC % (a uto) 0 Nucleated RBCs # 0.0 PT INR APTT Sodium 131 L Potassium 3.7 Chloride 94 L Carbon Dioxide 28 Anion Gap 12.7 BUN 13 Creatinine 1.0 GFR Calculation Not Reportable Glucose 119 H Calculated Osmolal ity 273 L Calcium 9.3 Magnesium Total Bilirubin 0.7 AST 18 ALT 17 Alkaline Phosphata se 51 Creatine Kinase 141 NT-Pro-B Natriuret Pep Total Protein 8.5 Albumin 4.0 Globulin 4.5 Procalcitonin TSH Urine Color Yellow Urine Appearance Clear Urine pH 7 Ur Specific [place] y 1.010 Urine Protein Neg Urine Glucose (UA) Norm Urine Ketones Negative Urine Blood 3+ H Urine Nitrate Negative Urine Bilirubin Neg Urine Urobilinogen Norm Ur Leukocyte Eryn ase Negative Urine RBC 50-80 H Urine WBC 0-4 H Ur Squamous Epith Cells Rare Amorphous Sediment Not Reportable Urine Bacteria Trace 12/14/20 12/15/20 12/15/20 17:35 04:20 04:20 WBC 9.9 RBC 4.35 Hgb 12.9 Hct 38.8 L MCV 89.2 MCH 29.7 MCHC 33.2 RDW 13.2 Plt Count 172 MPV 11.4 H Neut % (Auto) 64.4 Lymph % (Auto) 26.0 [place] % (Auto) 8.9 Eos % (Auto) 0.0 Baso % (Auto) 0.4 Neut # (Auto) 6.39 Lymph # (Auto) 2.6 [place] # (Auto) 0.9 Eos # (Auto) 0.0 Baso # (Auto) 0.0 Nucleated RBC % (a uto) 0 Nucleated RBCs # 0.0 PT 14.40 INR 1.08 APTT 30.6 Sodium 132 L Potassium 3.7 Chloride 97 L Carbon Dioxide 28 Anion Gap 10.7 BUN 13 Creatinine 1.1 GFR Calculation Not Reportable Glucose 122 H Calculated Osmolal ity 275 L Calcium 8.8 Magnesium 1.9 Total Bilirubin 0.5 AST 13 ALT 13 Alkaline Phosphata se 38 L Creatine Kinase NT-Pro-B Natriuret Pep 172 Total Protein 5.2 L D Albumin 3.1 L Globulin 2.1 Procalcitonin 0.09 TSH 2.80 Urine Color Urine Appearance Urine pH Ur Specific Gravit y Urine Protein Urine Glucose (UA) Urine Ketones Urine Blood Urine Nitrate Urine Bilirubin Urine Urobilinogen Ur Leukocyte Eryn ase Urine RBC Urine WBC Ur Squamous Epith Cells Amorphous Sediment Urine Bacteria Vitals: Temperature 98.0 F 12/15/20 07:35 Temperature Source Temporal Artery S can 12/15/20 07:35 Pulse Rate 69 12/15/20 07:35 Pulse Rhythm 12/14/20 17:27 Pulse Strength 3+ Normal 12/14/20 17:27 Respiratory Rate 17 12/15/20 07:35 Respiratory Effort Non-Labored 12/14/20 18:32 Respiratory Depth Normal 12/14/20 18:32 Respiratory Patter n 12/14/20 18:32 Blood Pressure 124/68 12/15/20 07:35 Blood Pressure Tabby n 86 12/15/20 07:35 Blood Pressure Pos ition Semi Fowlers 12/14/20 20:00 Pulse Oximetry 95 12/15/20 07:35 Oxygen Delivery Me thod 12/15/20 07:35 Sepsis Recent Feve r Within 48 Hours No 12/14/20 14:53 Sepsis New/Unexpla ined Change in Men inna Status No 12/14/20 14:53 Exam: Pre-Anes Outpt Exam: alert, oriented x 3, clear to auscultation bilaterally and regular rate & rhythm Cardiac Studies: No Data to Display
--- NOTE | 2020-12-15 09:17 | P.OP_ITS ---
Operative Report Date of procedure: December 15, 2020 Pre-op Diagnosis: Intratrochanteric left hip fracture Post-op diagnosis: same Post-op Findings: Same Procedure Done: Open reduction internal fixation left hip Implants: Clarisse gamma nail 13 x 420 mm, 13 x 120mm lag screw Pathology: none sent Surgeon: Kamari Koo Anesthesia: General Estimated blood loss (mL): 100 Findings: The patient had a comminuted left intratrochanteric fracture consisting of comminution in the area of the greater and lesser trochanters. Condition: stable Disposition: PACU Procedure: The patient was taken to the operating room. They were given 1 g of Ancef. They were positioned on the fracture table with the right lower extremity in gentle traction. A timeout was performed. A 2 cm long incision was made proximal to the greater trochanter scalpel blade. Dissection was carried down to tip the greater trochanter. A guidepin was passed manually from the tip of the trochanter down the shaft. The proximal reamer was utilized to open up the proximal canal. An 13 mm 400 mm [place] gamma nail was passed down the canal without difficulty. Under visualization of fluoroscopy a guidepin was driven up into the head and neck at 125? angle. It was measured at 120 mm in length and a lag screw similar length was then placed and locked into place with the proximal locking screw. Intraoperative imaging was obtained verifying satisfactory position of the hardware and reduction of the fracture. Deep tissues were closed with 0 Vicryl as were subcutaneous tissues. The skin was closed with skin diane. Sterile dressings were applied. The patient was extubated and taken to recovery room in stable condition.
--- NOTE | 2020-12-15 09:41 | SUR.OPER ---
0910 pedal pulse present. pt denies any pain at this time
[2020-12-15] MEDS: losartan 50 mg Tablet PO (10:13)
[2020-12-15] MEDS: sodium chloride 0.9% 1,000 ML 100 ML IV ×2 (10:13→20:21)
[2020-12-15] MEDS: hydroCHLOROthiazide 25 mg Tablet 12.5 MG PO (10:13)
--- NOTE | 2020-12-15 10:28 | PC.CHAP ---
Pastoral Care Encounter/Spiritual Assessment Type of Contact [] Declined staff climate scientist visit [] Patient/Family/Request visit [] Outpatient visit [] Follow-up visit [] Physician referral [] Code/Alert [x] Routine visit [] Staff referral [] Actively dying [] Patient sleeping [] Family support [] [] Out of room [] Palliative care [] [] Receiving care in room [] Pre-surgical visit [] Trauma [] Long length of stay [] ICU visit [] Other: Relational/Emotional Strength [x] Patient feels connected with others/family/visitors/staff [] Distress [] Loneliness/isolation [] Abandonment Spirituality of Patient [x] Person of Jaja [] Attends Episcopal of their [place] [x] Believes in Prayer [] Reads Bible or Amish materials [] There are Spiritual issues to be addressed Automotive Machinist Interventions [x] Prayer [x] Active listening [x] Non-anxious presence [x] Spiritual/emotional support [] Crisis/trauma care [] Spiritual counseling [] Bereavement support [] Provided bereavement packet [] Provided Bible/devotional materials [] Provided toy/stuffed animal, coloring book to patient or family member [] Provided Communion [] Anointing/Leslie [] Salvation [x] Completed spiritual assessment [] Other: Impact on Illness or Injury [] Angry [] Fearful [] Anxious [] Often cries [] Exhaustion [] Unable to work [] Unable to attend jew [] Unable to walk/stand [] Unable to read [] Unable to drive [] Unable to eat/drink [] Unable to sleep [] Unable to be with family [] Patient intubated [] Other: Summary Chaplains talked to and prayed with Patient and spouse visitor. Time spent with patient 10 minutes.
[2020-12-15] MEDS: morphine 4 mg/mL SDV 1 mL 2 MG IVP (11:18)
--- NOTE | 2020-12-15 11:30 | ANE.PACU2 ---
Inpatient post-anesthesia follow up: Airway intact: Yes Vital signs: Temperature 99.1 F Pulse Rate [Monito r] 66 Pulse Rate 89 Respiratory Rate 16 Blood Pressure [Le ft Arm] 135/88 Blood Pressure 137/69 Pulse Oximetry 92 Oxygen Delivery Me thod Nasal Cannula Oxygen Flow Rate 2 Fraction of Inspir ed Oxygen Hydration adequate: Yes Nausea and vomiting: No Pain level: 3 Mental status: Baseline
[2020-12-15] MEDS: chlorhexidine gluconate 0.12% Btl 473 mL 30 ML MUCOUS MEM ×3 (14:03→20:24)
[2020-12-15] MEDS: amlodipine 5 mg Tablet PO (14:23)
[2020-12-15] MEDS: sennosides-docusate Tablet 2 TAB PO (17:29)
[2020-12-15] MEDS: enoxaparin 40 mg/0.4 mL Syringe SUBCUT (17:29)
[2020-12-15] MEDS: mupirocin oint 22 gm 1 APPLIC NASAL (17:32)
[2020-12-15] MEDS: albuterol 8 gm MDI 2 PUFF INHALATION (19:56)
[2020-12-15] MEDS: famotidine 20 mg Tablet PO (20:23)
[2020-12-15] MEDS: latanoprost 0.005% Op Soln 2.5 mL Btl 1 DROP EYE-BOTH (20:24)
[2020-12-16] VITALS (10 sets, daily range): BP systolic 100–135; BP diastolic 64–72; PULSE 78–95; RESP 16–18; TEMP 36.4–37.9; O2SAT 91–95
[2020-12-16 05:27] LABS: Basophils # 0.1 10^3/uL (0.0-0.1); Basophils % 0.5 %; Hemoglobin 12.1 g/dL (11.7-16.6); Lymphocytes # 1.3 10^3/uL (0.8-4.8); Lymphocytes % 13.7 %; Mean Corpuscular HGB Conc 32.7 g/dL (30.0-36.0); Mean Corpuscular Hemoglobin 29.5 pg (28.0-34.0); Mean Corpuscular Volume 90.2 fL (80-94); Mean Platelet Volume 10.9 fL (7.4-10.4); Monocytes # 0.8 10^3/uL (0.2-0.9); Monocytes % 8.9 %; Neutrophils # 7.17 10^3/uL (1.8-7.7); Neutrophils % 76.5 %; Nucleated Red Blood Cells % 0 %; Platelet Count 154 10^3/cmm (130-400); Red Cell Distribution Width 13.6 % (12.1-15.1); White Blood Count 9.4 10^3/uL (4.0-10.0)
[2020-12-16] MEDS: HYDROcodone-acetaminophen 5-325 mg Tablet 1 TAB PO ×2 (05:44→11:35)
[2020-12-16] MEDS: sodium chloride 0.9% 1,000 ML 100 ML IV (05:51)
--- NOTE | 2020-12-16 06:06 | PC.NURSE ---
Khan Catheter removed at this time per orders. Khan Catheter intact. Patient tolerated well. 800mls of dark urine drained from Khan.
[2020-12-16 06:16] LABS: Alanine Aminotransferase 54 U/L (0-41); Alkaline Phosphatase 45 IU/L (40-130); Anion Gap 12.9 (5-19); Aspartate Amino Transferase 45 U/L (0-40); Blood Urea Nitrogen 8 mg/dL (8-23); Calcium 8.1 mg/dL (8.5-10.5); Carbon Dioxide 26 mmol/L (22-29); Chloride 97 mmol/L (98-107); Glucose 123 mg/dL (65-115); Osmolality Calculated 274 mOsm/kg (285-295); Potassium 3.9 mmol/L (3.5-5.1); Sodium 132 mmol/L (136-145); Total Bilirubin 0.9 mg/dL (0.15-1.2)
--- NOTE | 2020-12-16 06:55 | PC.NURSE ---
Report to Yi IVY
[2020-12-16] MEDS: albuterol 8 gm MDI 2 PUFF INHALATION ×2 (08:38→19:56)
[2020-12-16] MEDS: sennosides-docusate Tablet 2 TAB PO ×2 (08:53→17:10)
[2020-12-16] MEDS: famotidine 20 mg Tablet PO ×2 (08:53→20:31)
[2020-12-16] MEDS: hydroCHLOROthiazide 25 mg Tablet 12.5 MG PO ×2 (08:53→20:32)
[2020-12-16] MEDS: losartan 50 mg Tablet PO ×2 (08:54→20:32)
[2020-12-16] MEDS: chlorhexidine gluconate 0.12% Btl 473 mL 30 ML MUCOUS MEM ×2 (08:54→17:14)
--- NOTE | 2020-12-16 15:16 | P.PN_ITS ---
Subjective Subjective: Interval history: T-max 99.9 this morning., Hemodynamically stable, participated with PT, patient is currently max assist. Khan catheter was removed after which patient was noted to have 300 cc of urinary retention for which straight cath was done this morning. Medications: Reviewed: Yes Vitals/I&O/Wt Last Vital Signs Temp 97.6 F 12/16/20 11:54 Pulse 79 12/16/20 11:54 Resp 18 12/16/20 11:54 BP 100/64 12/16/20 11:54 Pulse Ox 91 12/16/20 11:54 12/16/20 12/16/20 12/16/20 06:59 14:59 22:59 Intake Total 1000 / 3500 450 / 450 Output Total 1300 / 2400 150 / 150 Balance -300 / 1100 300 / 300 Physical Exam Narrative: EXAM NARRATIVE: GEN: Awake, alert and oriented, no acute distress CVS: S1S2 N RS: CTA B/L anteriorly Abd: Soft, nt/nd , bs+ CARPENTER INSPECTOR: no focal neuro deficits Urinary Catheter Management^: Khan: Cath Placed During This Visit: no Reason for Continuing Indwelling Catheter: Other Data : 12/16/20 04:56 12/16/20 04:56 Micro: Microbiology 12/14/20 15:38 Urine Culture - Final Urine,Clean Catch A&P Assessment and plan (1) Fracture of left hip: Comminuted intertrochanteric fracture left hip S/P fall S/P: Open reduction internal fixation left hip on 12/15 Pain Control per ortho team Continue PT/OT Status: Deleted (2) Hypertension: Amlodipine 5 mg po daily Losartan 50Mg PO BID HCTZ 12.5 Mg oral BID Status: Acute (3) Leukocytosis: Resolved Likely reactive,deny any cough, sob,fever,urinary complaint. Urine analysis is clean Procal:0.09 post op Tmax 99.9F, likely related to post op state, continue spirometry, check CXR to evalute for atelactasis Status: Acute (4) Osteoarthritis of knees, bilateral: Status: Acute (5) Urinary retention: Bladder scan q shift, needed straight cath this am for retention of 300cc Status: Acute Additional A&P Information DVT PPX: Lovenox 40 mg sc daily Code Status :Full code Disposition :[facility] Attestations Medical Necessity Statement*: post op from ORIF hip fracture, ongoing PT/OT Coding Level of Care Code Acute Political Science Research Assistant for Chg Fwd Diagnoses Fracture of left hip S72.002A Hypertension I10 Leukocytosis D72.829 Osteoarthritis of knees, bilateral M17.0 Urinary retention R33.9
[2020-12-16 15:40] LABS: Globulin 2.2 g/dL (1.3-4.6); Total Protein 5.2 g/dL (6.6-8.7)
[2020-12-16] MEDS: enoxaparin 40 mg/0.4 mL Syringe SUBCUT (17:10)
--- NOTE | 2020-12-16 18:31 | P.PN_ITS ---
Subjective Subjective: Interval history: Patient states he was up with therapy today. Pain control better Vitals/I&O/Wt Last Vital Signs Temp 99.1 F 12/16/20 15:15 Pulse 87 12/16/20 15:15 Resp 18 12/16/20 15:15 BP 112/66 12/16/20 15:15 Pulse Ox 95 12/16/20 15:15 12/16/20 12/16/20 12/16/20 06:59 14:59 22:59 Intake Total 1000 / 3500 450 / 450 1240 / 1690 Output Total 1300 / 2400 150 / 150 100 / 250 Balance -300 / 1100 300 / 300 1140 / 1440 Physical Exam Narrative: EXAM NARRATIVE: Left hip dressings clean and dry. Minimal swelling left thigh Urinary Catheter Management^: Khan: Cath Placed During This Visit: yes Reason for Continuing Indwelling Catheter: Acute Urinary Retention or Obstruction Urinary Catheter Date of Insertion: 12/16/20 Urinary Catheter Time of Insertion: 16:28 Data : 12/16/20 04:56 12/16/20 04:56 Micro: Microbiology 12/14/20 15:38 Urine Culture - Final Urine,Clean Catch A&P Assessment and plan (1) Postoperative state: Status: Acute (2) Intertrochanteric fracture of left hip: Patient will continue with therapy. We will try for discharge home tomorr or Wednesday if at all possible. May need group home. Status: Acute Attestations Medical Necessity Statement*: Patient not independent with ambulation. Will reevaluate tomorrow for discharge home versus group home.\ Coding Level of Care Code Acute Technical Sales Advisor for Manny Hearn Diagnoses Postoperative state Z98.890 Intertrochanteric fracture of left hip S72.142A
[2020-12-16] MEDS: calcium carbonate 500 mg Chew Tablet PO (18:39)
[2020-12-16] MEDS: latanoprost 0.005% Op Soln 2.5 mL Btl 1 DROP EYE-BOTH (20:33)
[2020-12-17] VITALS (13 sets, daily range): BP systolic 123–137; BP diastolic 65–71; PULSE 82–96; RESP 15–18; TEMP 36.4–38.1; O2SAT 88–96
[2020-12-17 02:42] LABS: Basophils # 0.1 10^3/uL (0.0-0.1); Basophils % 0.5 %; Hematocrit 35.2 % (42.0-52.0); Hemoglobin 11.8 g/dL (11.7-16.6); Lymphocytes # 1.3 10^3/uL (0.8-4.8); Lymphocytes % 12.6 %; Mean Corpuscular HGB Conc 33.5 g/dL (30.0-36.0); Mean Corpuscular Hemoglobin 29.5 pg (28.0-34.0); Mean Platelet Volume 10.7 fL (7.4-10.4); Monocytes # 0.9 10^3/uL (0.2-0.9); Monocytes % 8.7 %; Neutrophils # 8.18 10^3/uL (1.8-7.7); Neutrophils % 77.7 %; Nucleated Red Blood Cells % 0 %; Platelet Count 143 10^3/cmm (130-400); Red Cell Distribution Width 13.2 % (12.1-15.1); White Blood Count 10.5 10^3/uL (4.0-10.0)
[2020-12-17 02:58] LABS: Alanine Aminotransferase 26 U/L (0-41); Alkaline Phosphatase 45 IU/L (40-130); Anion Gap 13.3 (5-19); Aspartate Amino Transferase 20 U/L (0-40); Blood Urea Nitrogen 10 mg/dL (8-23); Calcium 8.4 mg/dL (8.5-10.5); Carbon Dioxide 27 mmol/L (22-29); Chloride 96 mmol/L (98-107); Globulin 2.4 g/dL (1.3-4.6); Glucose 124 mg/dL (65-115); Osmolality Calculated 276 mOsm/kg (285-295); Potassium 3.3 mmol/L (3.5-5.1); Sodium 133 mmol/L (136-145); Total Bilirubin 0.8 mg/dL (0.15-1.2); Total Protein 5.4 g/dL (6.6-8.7)
--- NOTE | 2020-12-17 04:00 | XR_ITS ---
WS: [id number] Exam: XR chest 1V portable [id number] Date/Time of Exam: 12/17/2020 6:22 AM Reason For Exam: atelactasis Comparison 12/14/2020. The lungs are clear and fully expanded. Normal cardiomediastinal structures and bony elements. Degene rative changes of both shoulders. 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 XR/XR chest 1V portable [id number] IMPRESSION: 1. No acute cardiopulmonary finding.
--- NOTE | 2020-12-17 04:32 | PC.SOCIAL ---
Shift Summary Patient awake off and on throughout the night during rounding, would be awake watching tv. Assessed for pain in which patient reported that he was not having. Khan in place for retention, replaced yesterday during dayshift.
[2020-12-17] MEDS: albuterol 8 gm MDI 2 PUFF INHALATION ×3 (08:12→19:31)
[2020-12-17] MEDS: hydroCHLOROthiazide 25 mg Tablet 12.5 MG PO ×2 (08:46→21:16)
[2020-12-17] MEDS: losartan 50 mg Tablet PO ×2 (08:46→21:17)
[2020-12-17] MEDS: chlorhexidine gluconate 0.12% Btl 473 mL 30 ML MUCOUS MEM ×4 (08:47→21:16)
[2020-12-17] MEDS: famotidine 20 mg Tablet PO ×2 (08:47→21:16)
[2020-12-17] MEDS: sennosides-docusate Tablet 2 TAB PO ×2 (08:47→17:41)
--- NOTE | 2020-12-17 09:05 | PC.SOCIAL ---
Pg 2 IMM Explained to pt Pg 2 IMM. No questions voiced. Provided pt a copy. Signed, dated, & timed a copy & placed in chart.
[2020-12-17] MEDS: tamsulosin 0.4 mg Capsule PO (10:48)
--- NOTE | 2020-12-17 13:01 | PM.PN ---
Subjective Subjective: Interval history: Left hip pain better. Up with therapy for short distances today. Vitals/I&O/Wt Last Vital Signs Temp 97.9 F 12/17/20 11:32 Pulse 95 12/17/20 11:32 Resp 17 12/17/20 11:32 BP 123/65 12/17/20 11:32 Pulse Ox 96 12/17/20 11:32 12/16/20 12/17/20 12/17/20 22:59 06:59 14:59 Intake Total 1240 / 1690 240 / 240 Output Total 100 / 250 1150 / 1400 450 / 450 Balance 1140 / 1440 -1150 / 290 -210 / -210 Physical Exam Narrative: EXAM NARRATIVE: Left hip dressing clean and dry. Minimal swelling left thigh Urinary Catheter Management^: Khan: Cath Placed During This Visit: yes Reason for Continuing Indwelling Catheter: Acute Urinary Retention or Obstruction Urinary Catheter Date of Insertion: 12/16/20 Urinary Catheter Time of Insertion: 16:28 Data : 12/17/20 01:59 12/17/20 01:59 Micro: Microbiology 12/14/20 15:38 Urine Culture - Final Urine,Clean Catch A&P Assessment and plan (1) Intertrochanteric fracture of left hip: Status: Acute (2) Postoperative state: Patient will continue with therapy. Wanting discharge to home tomorrow. Will need follow-up in 2 weeks for stitch removal. Status: Acute Attestations Medical Necessity Statement*: Needs continued therapy. Hoping for discharge home tomorrow. Coding Level of Care Code Acute Brine Purifier for Manny Hearn Diagnoses Intertrochanteric fracture of left hip S72.142A Postoperative state Z98.890
--- NOTE | 2020-12-17 15:48 | P.PN_ITS ---
Subjective Subjective: Interval history: Participating with PT, walk 12 feet today which is an improvement over yesterday. Had urinary retention yesterday which is needed for him to be placed back.he had started Flomax today, will attempt removal of Dominique catheter again today. Pain is currently well controlled.t max 100.6F overnight at midnight Medications: Reviewed: Yes Vitals/I&O/Wt Last Vital Signs Temp 97.5 F L 12/17/20 15:26 Pulse 88 12/17/20 15:26 Resp 15 12/17/20 15:26 BP 127/71 12/17/20 15:26 Pulse Ox 92 12/17/20 15:26 12/17/20 12/17/20 12/17/20 06:59 14:59 22:59 Intake Total 360 / 360 Output Total 1150 / 1400 700 / 700 Balance -1150 / 290 -340 / -340 Physical Exam Narrative: EXAM NARRATIVE: GEN: Awake, alert and oriented, no acute distress CVS: S1S2 N RS: CTA B/L Abd: Soft, nt/nd , bs+ BAD CREDIT COLLECTOR: no focal neuro deficits Urinary Catheter Management^: Dominique: Cath Placed During This Visit: yes Reason for Continuing Indwelling Catheter: Acute Urinary Retention or Obstruction Urinary Catheter Date of Insertion: 12/16/20 Urinary Catheter Time of Insertion: 16:28 Data : 12/17/20 01:59 12/17/20 01:59 A&P Assessment and plan (1) Fracture of left hip: Comminuted intertrochanteric fracture left hip S/P fall S/P: Open reduction internal fixation left hip on 12/15 Pain Control per ortho team , currently optimized Continue PT/OT Status: Deleted (2) Hypertension: Amlodipine 5 mg po daily Losartan 50Mg PO BID HCTZ 12.5 Mg oral BID Status: Acute (3) Leukocytosis: Resolved Likely reactive,deny any cough, sob,fever,urinary complaint. Urine analysis is clean Procal:0.09 post op Tmax 99.9F, likely related to post op state, continue spirometry, check CXR to evalute for atelactasis Status: Acute (4) Osteoarthritis of knees, bilateral: Status: Acute (5) Urinary retention: Had dominique placed agaon yesetrday due to urinary retention started flomax today, attempt to remove catheter again today Status: Acute (6) Fever: t max 100.6 overnight. WBC count stable, no localizing symptoms at this time. No diarrhea Ua from 12/14 with 0-4 WBC, negative La and nitrate CXR without any consolidation , encourage spirometry likely post op fever, monitor for now Check COVID rapid Ag, blood cx Status: Acute Additional A&P Information DVT PPX: Lovenox 40 mg sc daily Code Status :Full code Disposition : Home with HH Attestations Medical Necessity Statement*: continue working with PT/OT, trial of dominique removal, fever w/up Coding Level of Care Code Acute Medical Imaging Director for Chg Fwd Diagnoses Fracture of left hip S72.002A Hypertension I10 Leukocytosis D72.829 Osteoarthritis of knees, bilateral M17.0 Urinary retention R33.9 Fever R50.9
[2020-12-17] MEDS: amlodipine 5 mg Tablet PO (16:30)
[2020-12-17] MEDS: potassium chloride ER 20 mEq Tablet 40 MEQ PO (16:30)
[2020-12-17 16:58] LABS: Add Urine Microscopic? YES; Bilirubin Urine Neg (Negative); Blood Urine 3+ (Negative); Glucose Urine UA Norm (Normal); Ketones Urine 1+ (Negative); Leukocyte Esterase Urine 2+ (Negative); Nitrate Urine Negative (Negative); Protein Urine 1+ (Negative); Urine Appearance Cloudy (CLEAR); Urine Color Red (Yellow); Urobilinogen Urine Norm (Negative); pH Urine 6.5 (5-7)
[2020-12-17 17:11] LABS: SARS Covid-2 Antigen Negative (Negative)
[2020-12-17] MEDS: enoxaparin 40 mg/0.4 mL Syringe SUBCUT (17:41)
[2020-12-17 17:58] LABS: RBC Urine TOO NUMEROUS TO CNT /hpf (0-2)
[2020-12-17 17:59] LABS: Add Urine Culture? Yes; Bacteria Urine 1+ /hpf; WBC Urine 40-55 /hpf (0-5)
--- NOTE | 2020-12-17 18:28 | PC.NURSE ---
SHIFT SUMMARY PATIENT HAS DONE WELL TODAY. PATIENT AMBULATED FURTHER WITH PHYSICAL THERAPY TODAY. THIS NURSE DISCONTINUED ALFREDO CATHETER. PATENT HADN'T VOIDED FOR SEVERAL HOURS AFTER REMOVAL. THIS NURSE BLADDER SCANNED PATIENT AND PATIENT HAD 250ML IN BLADDER. PATIENT THEN URINATED 200ML AFTER. URINE SENT TO LAB. COVID SCREEN NEGATIVE. CONTINUE TO MONITOR.
[2020-12-17] MEDS: latanoprost 0.005% Op Soln 2.5 mL Btl 1 DROP EYE-BOTH (21:16)
[2020-12-17] MEDS: HYDROcodone-acetaminophen 5-325 mg Tablet 1 TAB PO (21:17)
[2020-12-18 03:04] LABS: Basophils % 0.4 %; Eosinophils % 0.1 %; Hematocrit 37.2 % (42.0-52.0); Hemoglobin 12.3 g/dL (11.7-16.6); Lymphocytes # 2.3 10^3/uL (0.8-4.8); Lymphocytes % 22.5 %; Mean Corpuscular HGB Conc 33.1 g/dL (30.0-36.0); Mean Corpuscular Hemoglobin 29.4 pg (28.0-34.0); Mean Platelet Volume 10.7 fL (7.4-10.4); Monocytes % 9.6 %; Neutrophils # 6.82 10^3/uL (1.8-7.7); Neutrophils % 66.9 %; Nucleated Red Blood Cells % 0 %; Platelet Count 154 10^3/cmm (130-400); Red Blood Count 4.18 10^6/uL (4.1-5.3); Red Cell Distribution Width 12.9 % (12.1-15.1); White Blood Count 10.2 10^3/uL (4.0-10.0)
[2020-12-18 07:39] VITALS: BP 121/73; PULSE 78; RESP 16; TEMP 36.6; O2SAT 92
--- NOTE | 2020-12-18 08:13 | P.PN_ITS ---
Subjective Subjective: Interval history: Patient up with therapy. Ambulating with walker. In good spirits. Good p.o. intake. Passing urine. Vitals/I&O/Wt Last Vital Signs Temp 97.9 F 12/18/20 07:39 Pulse 78 12/18/20 07:39 Resp 16 12/18/20 07:39 BP 121/73 12/18/20 07:39 Pulse Ox 92 12/18/20 07:39 12/17/20 12/18/20 12/18/20 22:59 06:59 14:59 Intake Total 440 / 800 Output Total 210 / 910 850 / 1760 Balance 230 / -110 -850 / -960 Physical Exam Narrative: EXAM NARRATIVE: Left hip dressing clean and dry. Minimal swelling left thigh Urinary Catheter Management^: Khan: Cath Placed During This Visit: yes, but has since been removed by the nurse Reason for Continuing Indwelling Catheter: Acute Urinary Retention or Obstruction Urinary Catheter Date of Insertion: 12/16/20 Urinary Catheter Time of Insertion: 16:28 Date Urinary Catheter Removed: 12/17/20 Time Urinary Catheter Discontinued: 12:50 Data : 12/18/20 02:38 12/17/20 01:59 Micro: Microbiology 12/17/20 20:35 Blood Culture - Preliminary Blood SPECIMEN COLLECTED 12/17/20 20:40 Blood Culture - Preliminary Blood SPECIMEN COLLECTED A&P Assessment and plan (1) Postoperative state: Patient progressing well. Will discharge home today. Follow-up with me in 2 weeks. Status: Acute (2) Intertrochanteric fracture of left hip: Status: Acute Attestations Medical Necessity Statement*: Discharge today cleared with Ortho. Coding Level of Care Code Acute Digital Marketing Consultant for Manny Hearn Diagnoses Postoperative state Z98.890 Intertrochanteric fracture of left hip S72.142A
[2020-12-18] MEDS: albuterol 8 gm MDI 2 PUFF INHALATION (08:43)
[2020-12-18 08:45] VITALS: PULSE 98; RESP 16; O2SAT 95
[2020-12-18 08:47] VITALS: PULSE 97
[2020-12-18 09:04] VITALS: BP 121/73
[2020-12-18] MEDS: sennosides-docusate Tablet 2 TAB PO (09:04)
[2020-12-18] MEDS: losartan 50 mg Tablet PO (09:04)
[2020-12-18] MEDS: tamsulosin 0.4 mg Capsule PO (09:04)
[2020-12-18] MEDS: hydroCHLOROthiazide 25 mg Tablet 12.5 MG PO (09:04)
[2020-12-18] MEDS: chlorhexidine gluconate 0.12% Btl 473 mL 30 ML MUCOUS MEM ×2 (09:05→14:40)
[2020-12-18] MEDS: famotidine 20 mg Tablet PO (09:05)
[2020-12-18 11:42] VITALS: BP 121/75; PULSE 91; RESP 16; TEMP 36.6; O2SAT 97
[2020-12-18] MEDS: amlodipine 5 mg Tablet PO (14:40)
[2020-12-18] MEDS: ciprofloxacin 500 mg Tablet PO (14:40)
--- NOTE | 2020-12-18 14:52 | P.DS_ITS ---
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 XR hip LT 2-3V: Comminuted intertrochanteric fracture left hip. He underwent open reduction internal fixation of the left hip with placement of intramedullary screw on December 15, 2020. He tolerated the procedure well.. Notable events included urinary retention for which he needed placement of a Khan catheter, Flomax was initiated, catheter subsequently removed on December 17 and patient has been able to void since that time. He will also had a temperature of 100.6 Fahrenheit on 125, likely to be postoperative fever, chest x-ray without any consolidation or atelectasis, however urine showing the presence of 40-50 WBCs, urine culture pending, cannot exclude UTI, patient has therefore been started on ciprofloxacin empirically for 3 days. Fever is resolved at the time of discharge. He has been working with physical therapy, SNF placement was offered, however patient has elected to return home with home health. Physical Exam Narrative: EXAM NARRATIVE: GEN: Awake, alert and oriented, no acute distress CVS: S1S 2 N RS: CTA B/L Abd: Soft, nt/nd , bs+ SUPERVISOR CEMETERY WORKERS: no focal neuro deficits Urinary Catheter Management^: Khan: Cath Placed During This Visit: yes, but has since been removed by the nurse Reason for Continuing Indwelling Catheter: Acute Urinary Retention or Obstruction Urinary Catheter Date of Insertion: 12/16/20 Urinary Catheter Time of Insertion: 16:28 Date Urinary Catheter Removed: 12/17/20 Time Urinary Catheter Discontinued: 12:50 Discharge Data Data Completed and Pending: Completed Studies During Hospitalization Category Date Time Status XR chest 1V jey ble [id number] AM LABS Exams 12/17/20 04:00 Completed XR chest 1V jey ble [id number] Stat Exams 12/14/20 14:51 Completed XR hip LT 2-3V wo /w pel* [id number] Rout ine Exams 12/15/20 Completed XR hip LT 2-3V wo /w pel* [id number] Stat Exams 12/14/20 14:51 Completed Pending at discharge Category Date Time Status Blood Culture Sta t Lab 12/17/20 20:35 Results Urine Culture Rou jeremy Lab 12/17/20 16:35 Received Labs from last 24 hours 12/18/20 12/17/20 12/17/20 02:38 16:35 16:35 WBC 10.2 H RBC 4.18 Hgb 12.3 Hct 37.2 L MCV 89.0 MCH 29.4 MCHC 33.1 RDW 12.9 Plt Count 154 MPV 10.7 H Neut % (Auto) 66.9 Lymph % (Auto) 22.5 [place] % (Auto) 9.6 Eos % (Auto) 0.1 Baso % (Auto) 0.4 Neut # (Auto) 6.82 Lymph # (Auto) 2.3 [place] # (Auto) 1.0 H Eos # (Auto) 0.0 Baso # (Auto) 0.0 Nucleated RBC % (a uto) 0 Nucleated RBCs # 0.0 Urine Color Red Urine Appearance Cloudy Urine pH 6.5 Ur Specific Gravit y 1.010 Urine Protein 1+ H Urine Glucose (UA) Norm Urine Ketones 1+ H Urine Blood 3+ H Urine Nitrate Negative Urine Bilirubin Neg Urine Urobilinogen Norm Ur Leukocyte Eryn ase 2+ H Urine RBC Too numerous to c nt H Urine WBC 40-55 H Ur Squamous Epith Cells None Amorphous Sediment Not Reportable Urine Bacteria 1+ H SARS-CoV-2 Ag (Rap id) Negative Vitals: Last Vital Signs Temp 97.9 F 12/18/20 11:42 Pulse 91 12/18/20 11:42 Resp 16 12/18/20 11:42 BP 121/75 12/18/20 11:42 Pulse Ox 97 12/18/20 11:42 Discharge Plan Discharge Patient Disposition: Home Condition: Stable Prescriptions: New hydrocodone-acetaminophen 5-325 mg Tablet 1 tab PO Q4H PRN (Reason: Moderate To Severe Pain) Qty: 30 RF: 0 enoxaparin 40 mg/0.4 mL Syringe 40 mg SUBCUT Q24H 10 Days Qty: 4 RF: 0 celecoxib 200 mg capsule 200 mg PO Q12H 15 Days Qty: 30 RF: 0 tamsulosin 0.4 mg Capsule 0.4 mg PO DAILY 30 Days Qty: 30 RF: 0 Cipro 500 mg tablet 500 mg PO BID 3 Days Qty: 6 RF: 0 Continued budesonide-formoterol [Symbicort] 160-4.5 mcg/actuation HFA aerosol inhaler 2 puff INHALATION BID@ RF: 0 albuterol sulfate [ProAir HFA] 90 mcg/actuation HFA aerosol inhaler 2 puff INHALATION Q6H PRN (Reason: Shortness Of Breath) RF: 0 losartan-hydrochlorothiazide 100-12.5 mg tablet 0.5 tab PO BID@ RF: 0 amlodipine 5 mg tablet 5 mg PO DAILY@15 RF: 0 famotidine [Pepcid] 40 mg tablet 40 mg PO BID PRN (Reason: Acid Reflux) RF: 0 sildenafil 100 mg tablet 100 mg PO PRN RF: 0 latanoprost (PF) 0.005 % drops 1 drop ophthalmic (eye) BEDTIME RF: 0 alendronate 70 mg tablet 70 mg PO Q7D RF: 0 Vitamin D3 50 mcg (2,000 unit) Tablet 50 mcg PO DAILY RF: 0 Voltaren 1 % gel 4 gm TOPICAL QID PRN (Reason: Pain) RF: 0 Discontinued diclofenac sodium 75 mg Tablet,Delayed Release (Dr/Ec) 75 mg PO BID@ RF: 0 Discharge Orders: Discharge Order (Routine); Ordered 12/18/20 Ordered By: Radha Block Other Ambulatory Orders: DME: Lamine (Order) Location: None Selected Ordered By: Kamari Koo Referrals: Kamari Koo MD [Physician] - 01/01/21 9:30 am Discharge Diet: Advance as tolerated Discharge Activity: As per PT/OT instructions Patient Instructions: Ciprofloxacin (By mouth), Hydrocodone/Acetaminophen (By mouth), Enoxaparin (Injection), Tamsulosin (By mouth), Celecoxib (By mouth), Urinary Retention in Men (GEN), Open Reduction and Internal Fixation of a Hip Fracture (DC) Activity Restrictions/Additional Instructions: Okay to shower. No soaking incision in tub Apply FirstIce up to 20 min/hr for pain and swelling Take Celebrex twice a day for the next 15 days for pain , discontinue other anti-inflammatories Take Tylenol 325mg (up to 2 tabs) 3 times a day for mild pain take [place] for breakthrough pain. Exercises per physical therapy. May weight-bear as tolerated on total hip arthroplasty Discharge Attestations Time Spent in Discharge Care*: greater than 30 min Quality Metrics Clinical Quality Measures During this hospital stay, did patient experience: None Coding Level of Care Code Acute Aircraft Designer for Manny Hearn Diagnoses Postoperative state Z98.890 Intertrochanteric fracture of left hip S72.142A UTI (urinary tract infection) N39.0 Urinary retention R33.9
[2020-12-18 15:26] VITALS: BP 121/75; PULSE 91; RESP 16; TEMP 36.6; O2SAT 97
--- NOTE | 2020-12-18 15:27 | PC.NURSE ---
Discharge note IV removed from patients right AC space. Tip intact and patient tolerated well. Patient wheeled by wheelchair to private vehicle accompanied by spouse. Walker and belongings sent with patient. Discharge instructions went over and follow up appointment went over with patient and spouse. Education on anticoagulant upon discharge verbalized and understood by patient.
== END 2020-12-18 16:00 | disposition home or self-care (01) | DRG 481 ==
LOC: ER 15:05 → MEDSURG 16:49
PROVIDERS: Orthopaedic Surgery; Admitting Provider Internal Medicine; Emergency Provider Family Medicine; Visit Provider Student in an Organized Health Care Education/Training Program
PROC: 0QS706Z Reposition Left Upper Femur with Intramedullary Internal Fixation Device, Open Approach (ICD-10-PCS; CPT 27245; principal; 2020-12-15 08:00)
DX: S72.142A Displaced intertrochanteric fracture of left femur, initial encounter for closed fracture (principal); C18.2 Malignant neoplasm of ascending colon; N39.0 Urinary tract infection, site not specified; W01.0XXA Fall on same level from slipping, tripping and stumbling without subsequent striking against object, initial encounter; I10 Essential (primary) hypertension; M17.0 Bilateral primary osteoarthritis of knee; Z90.49 Acquired absence of other specified parts of digestive tract; Z87.891 Personal history of nicotine dependence; R33.9 Retention of urine, unspecified
CPT/HCPCS: 12345; 36415; 51702; 71045; 73502; 76000; 80053; 81001; 82550; 83735; 83880; 84145; 84443; 85025; 85610; 85730; 87040; 87086; 87426; 93005; 94640; 96372; 97110; 97116; 97161; 97166; 97530; 97535; 99283; C1713; J0690; J1650; J2270; J2370; J2405; J2704; J2710; J3010; J3490; J3535; J7030

== ENCOUNTER → 2021-01-14 15:50 | Outpatient (BNVA) | payer MEDICARE, OTHER, SELFPAY | PROVIDERS: Visit Provider Orthopaedic Surgery | DX: S72.002A Fracture of unspecified part of neck of left femur, initial encounter for closed fracture (principal); X58.XXXA Exposure to other specified factors, initial encounter; Z48.89 Encounter for other specified surgical aftercare | CPT/HCPCS: 73502 ==

== ENCOUNTER → 2021-02-11 14:58 | Outpatient (BNVA) | payer MEDICARE, OTHER, SELFPAY | PROVIDERS: Visit Provider Orthopaedic Surgery | DX: Z48.89 Encounter for other specified surgical aftercare (principal); S72.002D Fracture of unspecified part of neck of left femur, subsequent encounter for closed fracture with routine healing; X58.XXXD Exposure to other specified factors, subsequent encounter | CPT/HCPCS: 73502 ==

== ENCOUNTER → 2021-03-11 14:20 | Outpatient (BNVA) | payer MEDICARE, OTHER, SELFPAY | PROVIDERS: Visit Provider Orthopaedic Surgery | DX: S72.002A Fracture of unspecified part of neck of left femur, initial encounter for closed fracture (principal); Z48.89 Encounter for other specified surgical aftercare; X58.XXXA Exposure to other specified factors, initial encounter | CPT/HCPCS: 73502 ==

== ENCOUNTER → 2021-09-17 15:32 | Outpatient (BNVA) | payer OTHER, MEDICARE, SELFPAY | PROVIDERS: PCP Nurse Practitioner; Visit Provider Urology | DX: N52.9 Male erectile dysfunction, unspecified (principal) | CPT/HCPCS: 81003 ==

== ENCOUNTER 2021-10-01 06:00 | Outpatient (RCR) | payer MEDICARE, OTHER, SELFPAY | END 2021-10-21 23:59 | disposition home or self-care (01) | LOC: TPT 06:00 | PROVIDERS: PCP Nurse Practitioner; Referring Provider Orthopaedic Surgery; Visit Provider Orthopaedic Surgery | DX: M17.0 Bilateral primary osteoarthritis of knee (principal) | CPT/HCPCS: 97110; 97116; 97140; 97162 ==

== ENCOUNTER 2021-10-22 12:04 | Outpatient (RCR) | payer MEDICARE, OTHER, SELFPAY | END 2021-11-18 23:59 | disposition home or self-care (01) | LOC: TPT 12:04 | PROVIDERS: PCP Nurse Practitioner; Referring Provider Orthopaedic Surgery; Visit Provider Orthopaedic Surgery | DX: M17.0 Bilateral primary osteoarthritis of knee (principal) | CPT/HCPCS: 97110; 97140; 97162 ==

== ENCOUNTER 2022-01-01 06:00 | Outpatient (RCR) | payer MEDICARE, OTHER, SELFPAY | END 2022-01-19 23:59 | disposition home or self-care (01) | LOC: TPT 06:00 | PROVIDERS: PCP Nurse Practitioner; Referring Provider Orthopaedic Surgery; Visit Provider Orthopaedic Surgery | DX: Z47.1 Aftercare following joint replacement surgery (principal); Z96.651 Presence of right artificial knee joint | CPT/HCPCS: 97110; 97162 ==

== ENCOUNTER 2022-01-20 06:00 | Outpatient (RCR) | payer MEDICARE, OTHER, SELFPAY | END 2022-02-19 23:59 | disposition home or self-care (01) | LOC: TPT 06:00 | PROVIDERS: PCP Nurse Practitioner; Referring Provider Orthopaedic Surgery; Visit Provider Orthopaedic Surgery | DX: Z47.1 Aftercare following joint replacement surgery (principal); Z96.651 Presence of right artificial knee joint | CPT/HCPCS: 97110 ==

== ENCOUNTER 2022-02-20 06:00 | Outpatient (RCR) | payer MEDICARE, OTHER, SELFPAY | END 2022-02-25 23:59 | disposition home or self-care (01) | LOC: TPT 06:00 | PROVIDERS: PCP Nurse Practitioner; Referring Provider Orthopaedic Surgery; Visit Provider Orthopaedic Surgery | DX: Z47.1 Aftercare following joint replacement surgery (principal); Z96.651 Presence of right artificial knee joint | CPT/HCPCS: 97110 ==

== ENCOUNTER → 2022-06-30 13:34 | Outpatient (BNVA) | payer OTHER, SELFPAY | PROVIDERS: PCP Nurse Practitioner; Visit Provider Urology | DX: N52.9 Male erectile dysfunction, unspecified (principal) | CPT/HCPCS: 99213 ==

== ENCOUNTER → 2022-07-08 12:58 | Outpatient (BNVA) | payer OTHER, SELFPAY | PROVIDERS: PCP Nurse Practitioner; Visit Provider Surgery | DX: Z85.038 Personal history of other malignant neoplasm of large intestine (principal) | CPT/HCPCS: 99203 ==

== ENCOUNTER → 2022-07-10 07:41 | Outpatient (BNVA) | payer OTHER, SELFPAY | PROVIDERS: PCP Nurse Practitioner; Visit Provider Urology | DX: N52.9 Male erectile dysfunction, unspecified (principal) | CPT/HCPCS: 99214 ==

== ENCOUNTER 2022-08-13 06:43 | Day surgery (SDC) | payer OTHER, SELFPAY ==
[2022-08-11 10:58] VITALS: BMI 29.2
[2022-08-13 07:01] VITALS: BP 151/86; PULSE 67; RESP 18; TEMP 36.3; O2SAT 97
[2022-08-13] MEDS: sodium chloride 0.9% 1,000 ML 30 ML IV (07:19)
--- NOTE | 2022-08-13 07:42 | ANES.PREANE2 ---
Pre-Anesthetic Assessment Height/Weight: Height 1.8 m Weight 95.254 kg Temp Pulse Resp BP Pulse Ox 97.4 F L 67 18 151/86 97 08/13/22 07:01 08/13/22 07:01 08/13/22 07:01 08/13/22 07:01 08/13/22 07:01 Preop Diagnosis: History of colon cancer Operation Date: 08/13/22 08:15 Proposed Procedures p Colonoscopy 04781,Z85.038(Not Applicable) - Garfield Saab MD Familial anesthetic complications: None Was Beta Immanuel taken within 24 hours: N/A Was Clonidine taken within 24 hours: N/A Last intake: Intake Last Liquid Date 08/12/22 Last Liquid Time 22:00 Last Solid Date 08/11/22 Last Solid Time 18:00 Social No alcohol and No tobacco Exam alert, oriented x 3, clear to auscultation bilaterally and regular rate & rhythm Airway Submandibular: within normal limits Cervical ROM: within normal limits Mallampati: Class I Dentition: full History/ROS No significant complaints Pulmonary None reported CV/HEM Hypertension METS = 4, limited d/t pain in hip None reported Hepatic None reported GI Gastroesophageal Reflux Disease Colon cancer Metabolic Hyperlipidemia [facility] [place] Osteoarthritis/DJD Neuropsych None reported Anesthetic Plan ASA status: 2 Anesthesia: Anesthesia Evaluation, General and MAC Other: I discussed with the patient risks, goals, and benefits of MAC and general anesthesia. We discussed spectrum of MAC anesthesia including conversion to general as well as possibility of recall of intraoperative stimuli including discomfort/pain. Patient agrees to proceed with MAC. Risk of > 500 ml blood loss (7ml/kg in children): No Medications/Allergies Home Medications Medication Instructions Recorded Confirmed Last Taken Type alendronate 70 mg tablet 70 mg PO Q7D 03/21/20 08/13/22 08/10/22 History amlodipine 5 mg tablet 5 mg PO DAILY@15 03/21/20 08/13/22 08/12/22 History famotidine 40 mg tablet (Pepcid) 40 mg PO BID PRN Acid Reflux 03/21/20 08/13/22 08/11/22 History latanoprost (PF) 0.005 % eye drops 1 drop ophthalmic (eye) BEDTIME 03/21/20 08/13/22 08/12/22 History losartan 100 1 tab PO DAILY 0408/13/22 08/12/22 History mg-hydrochlorothiazide 12.5 mg tablet cholecalciferol (vitamin D3) 50 50 mcg PO DAILY 12/14/20 08/13/22 08/12/22 History mcg (2,000 unit) tablet (Vitamin D3) triamcinolone acetonide 0.1 % 1 applic topical BID #30 grams 06/17/21 08/13/22 08/10/22 Rx topical ointment acetaminophen 500 mg capsule 500 mg PO Q6H PRN Pain 09/17/21 08/11/22 Unknown History cyanocobalamin (vitamin B-12) 1,000 mcg PO DAILY 09/17/21 08/13/22 08/12/22 History 1,000 mcg capsule gabapentin 300 mg capsule 300 mg PO BID 09/17/21 08/13/22 08/12/22 History naproxen sodium 220 mg tablet 220 mg PO DAILY PRN Pain 09/17/21 08/13/22 Unknown History tiotropium bromide 2.5 2 inh inhalation QAM 06/22/22 08/13/22 08/12/22 History mcg/actuation mist for inhalation (Spiriva Respimat) Allergies Allergy/AdvReac Type Severity Reaction Status Date / Time Pgmopun-DYH-VwX Reductase Allergy Intermediate muscle Verified 08/11/22 10:55 Inhibitor twitching [Itsizas-Xxm-Kcf Reductase Inhibitor] lisinopril AdvReac Intermediate cough Verified 08/11/22 10:55 Current Medications Generic Name Dose Route Start Last Admin Trade Name Freq PRN Reason Stop Dose Admin Sodium Chloride 1,000 mls @ 30 mls/hr 08/13/22 07:00 08/13/22 07:19 Sodium Chloride 0.9% IV 30 mls/hr .Q24H YOUNG Administration PFSH Anesthesia Medical History Colon cancer Erectile dysfunction Hypertension Surgical History H/O hernia repair History of colon resection History of hip surgery History of knee replacement History of kyphoplasty S/P tonsillectomy Family History Father , AT AGE 69 Hypertension Heart attack Mother , IN HER 50'S Automobile accident Other CAD (coronary artery disease) Cancer Social History Smoking and tobacco status: never smoked Alcohol intake: never Marital status: Current occupational status: retired History of recent travel: Yes ([place]) Data Anesthesia Cardiac Studies: No Data to Display
--- NOTE | 2022-08-13 07:56 | W.PM.OPSFHP ---
Same Day Surgery H&P Indication for Procedure/HPI DATE OF PROCEDURE: August 13, 2022 CHIEF COMPLAINT/INDICATIONFOR SURGICAL PROCEDURE: History of colon cancer PREOP DIAGNOSIS: History of colon cancer PLANNED PROCEDURE: Operation Date: 08/13/22 08:15 Proposed Procedures p Colonoscopy 44809,Z85.038(Not Applicable) - Garfield Saab MD Mr. Ruiz is a pleasant 81 years old gentleman comes today for surveillance colonoscopy status post right hemicolectomy for colon cancer and history of colon polyps. ROS All systems have been reviewed negative except as for the above or per problem list. Medications/Allergies* Home Medications Medication Instructions Recorded Confirmed Type alendronate 70 mg tablet 70 mg PO Q7D 03/21/20 08/13/22 History amlodipine 5 mg tablet 5 mg PO DAILY@15 03/21/20 08/13/22 History famotidine 40 mg tablet (Pepcid) 40 mg PO BID PRN Acid Reflux 03/21/20 08/13/22 History latanoprost (PF) 0.005 % eye drops 1 drop ophthalmic (eye) BEDTIME 03/21/20 08/13/22 History losartan 100 1 tab PO DAILY 03/21/20 08/13/22 History mg-hydrochlorothiazide 12.5 mg tablet cholecalciferol (vitamin D3) 50 50 mcg PO DAILY 12/14/20 08/13/22 History mcg (2,000 unit) tablet (Vitamin D3) acetaminophen 500 mg capsule 500 mg PO Q6H PRN Pain 09/17/21 08/11/22 History cyanocobalamin (vitamin B-12) 1,000 mcg PO DAILY 09/17/21 08/13/22 History 1,000 mcg capsule gabapentin 300 mg capsule 300 mg PO BID 09/17/21 08/13/22 History naproxen sodium 220 mg tablet 220 mg PO DAILY PRN Pain 09/17/21 08/13/22 History tiotropium bromide 2.5 2 inh inhalation QAM 06/22/22 08/13/22 History mcg/actuation mist for inhalation (Spiriva Respimat) Allergies/Adverse Reactions Allergy/AdvReac Type Severity Reaction Status Date / Time Xeyjqqy-PWU-PgV Reductase Allergy Intermediate muscle Verified 08/13/22 07:57 Inhibitor twitching [Bkcmluj-Xwf-Ykh Reductase Inhibitor] lisinopril AdvReac Intermediate cough Verified 08/13/22 07:57 Current Medications: Generic Name Dose Route Start Last Admin Trade Name David PRN Reason Stop Dose Admin Sodium Chloride 1,000 mls @ 30 mls/hr 08/13/22 07:00 08/13/22 07:19 Sodium Chloride 0.9% IV 30 mls/hr .Q24H YOUNG Administration Pertinent History/Comorbid Conditions* Medical History (Updated 07/10/22 @ 13:53 by Garfield Saab MD) Colon cancer Erectile dysfunction Hypertension Surgical History (Updated 06/20/22 @ 17:24 by Pippa Rizo DO) H/O hernia repair History of colon resection History of hip surgery History of knee replacement History of kyphoplasty S/P tonsillectomy Family History (Updated 09/17/21 @ 13:46 by Estee Thomas LPN) Father, AT AGE 69 Mother, IN HER 50'S CAD (coronary artery disease) Heart attack Father Automobile accident Mother Cancer Hypertension Father Social History Smoking and tobacco status: never smoked Alcohol intake: never Marital status: Current occupational status: retired History of recent travel: Yes ([place]) Pertinent Exam Findings alert, oriented x 3, regular rate & rhythm and procedure specific exam findings (Abdominal exam nontender nondistended soft) Recommendations Surgery/Procedure today (Surveillance colonoscopy) Coding Level of Care Code Acute Aerospace Quality Engineer for Manny Hearn
[2022-08-13 09:16] VITALS: BP 121/79; PULSE 72; RESP 20; O2SAT 92
[2022-08-13 09:28] VITALS: BP 124/82; PULSE 78; RESP 18; O2SAT 95
--- NOTE | 2022-08-13 09:41 | SUR.PHASEII ---
pt arrived for post care recovery when pt was awake enough for the Dr to visit with pt was informed that his procedure could not be completed totally due to having more colon than expected due to a post hemicolectomy Dr recommended a barium enema to be sure that there were no issues in the areas that could not be reached the charge nurse was working on an appointment with radiology for the pt but the quickest appointment was for 08/19 the pt informed this nurse that if he had to do a prep again that he would not do the procedure Dr was informed about this the Dr then discussed with the pt about the prep for the barium enema was different than the colonoscopy and that radiology would explain that to him Dr has a follow up in 2 weeks with pt
--- NOTE | 2022-08-13 14:29 | ANE.PACU2 ---
Inpatient post-anesthesia follow up: Airway intact: Yes Vital signs: Temperature 97.4 F Pulse Rate 78 Respiratory Rate 18 Blood Pressure 124/82 Pulse Oximetry 95 Oxygen Delivery Me thod Room Air Oxygen Flow Rate Fraction of Inspir ed Oxygen Hydration adequate: Yes Nausea and vomiting: No Pain level: 1 Mental status: Baseline
== END 2022-08-13 10:04 | disposition home or self-care (01) ==
PROVIDERS: PCP Nurse Practitioner; Visit Provider Surgery
PROC: 0DJD8ZZ Inspection of Lower Intestinal Tract, Via Natural or Artificial Opening Endoscopic (ICD-10-PCS; CPT 45378; principal; 2022-08-13 08:15)
DX: Z12.11 Encounter for screening for malignant neoplasm of colon (principal); Z85.038 Personal history of other malignant neoplasm of large intestine; I10 Essential (primary) hypertension; K57.30 Diverticulosis of large intestine without perforation or abscess without bleeding; K21.9 Gastro-esophageal reflux disease without esophagitis; E78.5 Hyperlipidemia, unspecified
CPT/HCPCS: 45378; J2704; J3490; J7030

== ENCOUNTER 2022-08-19 08:14 | Outpatient (CLI) | payer OTHER, SELFPAY ==
--- NOTE | 2022-08-19 08:34 | FL_ITS ---
WS: [id number] Exam: [place] barium enema [id number] Date/Time of Exam: 08/19/2022 8:35 AM Reason For Exam: INCOMPLETE COLONOSCPY HX OF COLON CANCER Preliminary survey of the abdomen shows signs of kyphoplasty involving L2 and L4. Surgical sutures se en in the right lower quadrant of the abdomen. Hardware partially visualized in the left hip. The colon fills to the cecum with reflux into the terminal ileum. There was no evidence of colonic ma ss or constricting lesion. Several diverticuli noted in the sigmoid colon. The haustral pattern is we ll maintained. The colon is nondisplaced. Several isolated diverticuli in the left colon. FL/FL barium enema [id number] IMPRESSION: 1. No evidence of colonic mass or constricting lesion. 2. Mild diverticulosis of the sigmoid and left colon.
== END 2022-08-19 08:15 | disposition home or self-care (01) ==
LOC: RAD 08:15
PROVIDERS: PCP Nurse Practitioner; Visit Provider Surgery
DX: Z85.038 Personal history of other malignant neoplasm of large intestine (principal); K57.30 Diverticulosis of large intestine without perforation or abscess without bleeding
CPT/HCPCS: 74270

== ENCOUNTER → 2022-10-05 14:01 | Outpatient (BNVA) | payer OTHER, SELFPAY | PROVIDERS: PCP Nurse Practitioner; Visit Provider Urology | DX: N52.9 Male erectile dysfunction, unspecified (principal) | CPT/HCPCS: 99213 ==

== ENCOUNTER → 2023-03-22 14:38 | Outpatient (BNVA) | payer OTHER, SELFPAY | PROVIDERS: PCP Nurse Practitioner; Visit Provider Dermatology | DX: L57.0 Actinic keratosis (principal); L72.0 Epidermal cyst; L82.1 Other seborrheic keratosis; D18.01 Hemangioma of skin and subcutaneous tissue; L81.4 Other melanin hyperpigmentation; M67.431 Ganglion, right wrist | CPT/HCPCS: 10060; 17000; 17003; 99213 ==

== ENCOUNTER 2023-08-17 16:28 | Outpatient (CLI) | payer OTHER, SELFPAY ==
--- NOTE | 2023-08-17 16:33 | CT_ITS ---
WS: [id number] CT LEFT FEMUR, NONCONTRAST. HISTORY: PAIN FOR 5 MONTHS IS WORSENING, LEFT HIP Technique: All CT scans at [facility] use at least one of these dose optimization techniques: automated exposure control; mA and/or kV adjustment per patient size (includes targeted exams where dose is matched to clinical indication); or iterative reconstruction. DLP: 949.82 mGy.cm COMPARISON: LEFT hip radiographs 03/11/2021 Lung intramedullary femoral sergey remains in good position. The gamma nail that extends obliquely throu gh the femoral neck and head has changed position. The screw now extends beyond the bony confines int o the joint space. There is also an abnormal configuration of the femoral head which is new. Deformit y of the femoral head consistent with developing osteonecrosis. Loss of the normal overlying cartilag e. Screw extends beyond the femoral head into the acetabulum. There are unhealed fractures involving the proximal femur. These are age-indeterminate and probably not acute based upon the margins. One of the fractures does extend into the medullary cavity to the femoral sergey. The distal sergey is normal pos ition. There is increased soft tissue surrounding the LEFT femoral head probably component of synovitis and inflammation. There are few small bony fragments also distributed throughout the joint space. IMPRESSION: 1. No acute femoral fracture is identified. 2. 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 3. The gamma nail now extends beyond the bony confinements into the joint space. Recommend evaluation by orthopedics.
== END 2023-08-17 16:29 | disposition home or self-care (01) ==
PROVIDERS: PCP Nurse Practitioner; Visit Provider Nurse Practitioner
DX: M25.552 Pain in left hip (principal); M21.852 Other specified acquired deformities of left thigh; Z98.890 Other specified postprocedural states
CPT/HCPCS: 73700

== ENCOUNTER → 2024-03-22 13:02 | Outpatient (BNVA) | payer OTHER, SELFPAY | PROVIDERS: PCP Nurse Practitioner; Visit Provider Nurse Practitioner Family | DX: L57.0 Actinic keratosis (principal); L82.0 Inflamed seborrheic keratosis; L21.8 Other seborrheic dermatitis; L82.1 Other seborrheic keratosis; M70.21 Olecranon bursitis, right elbow; M67.441 Ganglion, right hand; D18.01 Hemangioma of skin and subcutaneous tissue; L81.4 Other melanin hyperpigmentation | CPT/HCPCS: 17000; 17110; 99213 ==

== ENCOUNTER 2024-04-13 18:26 | Emergency (ER) | payer OTHER, SELFPAY ==
[2024-04-13 18:31] VITALS: BP 154/87; PULSE 98; RESP 17; TEMP 36.8; O2SAT 97; BMI 27.1
--- NOTE | 2024-04-13 19:36 | CTR_ITS ---
PROCEDURE INFORMATION: Exam: CT Head Without Contrast Exam date and time: 04/13/2024 8:09 PM Age: 83 years old Clinical indication: Injury or trauma; Fall TECHNIQUE: Imaging protocol: Computed tomography of the head without contrast. Radiation optimization: All CT scans at this facility use at least one of these dose optimization techniques: automated exposure control; mA and/or kV adjustment per patient size (includes targeted exams where dose is matched to clinical indication); or iterative reconstruction. COMPARISON: CT cervical spin wo con* [id number] 04/13/2024 8:09 PM RADIATION DOSE METRICS: Total DLP (mGy-cm): 997.4 FINDINGS: Brain: No hemorrhage. Unremarkable white matter. No mass effect. Preserved ocampo-white interfaces. Cerebral ventricles: No ventriculomegaly. Paranasal sinuses: Visualized sinuses are unremarkable. No fluid levels. Mastoid air cells: Visualized mastoid air cells are well aerated. Bones: Unremarkable. No acute fracture. Soft tissues: Unremarkable. CT/CT head wo con* [id number] IMPRESSION: No evidence of acute intracranial hemorrhage, mass effect, or edema.
--- NOTE | 2024-04-13 19:36 | CTR_ITS ---
PROCEDURE INFORMATION: Exam: CT Orbits Without Contrast Exam date and time: 04/13/2024 8:13 PM Age: 83 years old Clinical indication: Injury or trauma; Fall TECHNIQUE: Imaging protocol: Computed tomography of the orbits without contrast. Radiation optimization: All CT scans at this facility use at least one of these dose optimization techniques: automated exposure control; mA and/or kV adjustment per patient size (includes targeted exams where dose is matched to clinical indication); or iterative reconstruction. COMPARISON: CT head wo con* [id number] 04/13/2024 8:09 PM RADIATION DOSE METRICS: Total DLP (mGy-cm): 473 FINDINGS: Paranasal sinuses: Normal. No air-fluid levels. Orbital cavities: In particular, orbital structures are intact. 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 No evidence of acute facial bone fracture in the scan range. Soft tissues: No significant facial soft tissue swelling. CT/CT orbit BI wo con* [id number] IMPRESSION: 1. No evidence of acute orbital fracture or significant soft tissue abnormality. 2. 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
--- NOTE | 2024-04-13 19:37 | W.ED.FALL ---
HPI - Fall General: Chief Complaint: Head Injury Stated Complaint: fell hit face right side pain in right chest cough Time Seen by Provider: 04/13/24 19:36 History of Present Illness: 83-year-old male patient comes in today for a fall with right-sided rib pain, right side periorbital bruising, eye redness. Patient denies any other significant chest pain or difficulty breathing. Patient appears nontoxic. Patient ambulates well. Patient takes medications for blood pressure, GERD neuropathy. Review of Systems General: Reports: 10 or more systems reviewed and unremarkable except in HPI and below PFSH ED PFSH: Medical History Colon cancer Erectile dysfunction GERD (gastroesophageal reflux disease) Glaucoma Hyperlipidemia Hypertension Impaired hearing Low back pain Osteoarthritis Polyneuropathy Tinnitus Surgical History H/O hernia repair History of colon resection History of hip surgery History of knee replacement History of kyphoplasty S/P tonsillectomy Family History Father , AT AGE 69 Hypertension Heart attack Mother , IN HER 50'S Automobile accident Other CAD (coronary artery disease) Cancer Social History Smoking and tobacco/nicotine status: former use of tobacco/nicotine Alcohol intake: never Substance/Drug Use: never Marital status: Current occupational status: retired Physical Exam Const: COMMON NORMALS: alert HENMT: COMMON NORMALS: Normal external nose present HEAD & SCALP: hematoma (Right periorbital) NOSE: Normal external nose present MOUTH: Normal oral and palatal mucosa present Eye: OTHER: Subconjunctival hemorrhage noted to the right eye. Neck/C-Spine: COMMON NORMALS: full ROM Chest: CHEST: Yes tenderness (Anterior right upper chest) Resp: COMMON NORMALS: normal respiratory effort GI: COMMON NORMALS: Soft to palpation PALPATION: Yes Soft to palpation Back/Pelvis: COMMON NORMALS: thoracic and lumbar spine normal to inspection Extremity: COMMON NORMALS: full ROM Neuro: SENSORIUM/ORIENTATION: Yes alert Skin: COMMON NORMALS: turgor normal GENERAL SKIN EXAM: turgor normal Course Vital Signs: Vital signs: Vital Signs Temperature 98.2 F 04/13/24 18:31 Pulse Rate 90 04/13/24 20:54 Respiratory Rate 17 04/13/24 18:31 Blood Pressure 130/91 04/13/24 20:54 Pulse Oximetry 97 04/13/24 20:54 Oxygen Delivery Me thod Room Air 04/13/24 20:54 MDM - Fall Medical Decision Making 83-year-old male patient comes in today for complaints of injury to the right anterior chest wall, right face, with bruising of the periorbital area. Patient reports improvement in seeing out of the eye as compared to earlier. Pupils are equal and reactive. No obvious globe rupture is noted. Patient is able to follow finger without difficulty. Acuity is normal. Differential diagnosis includes but not limited to orbital fracture, globe rupture, subconjunctival hemorrhage, intracranial bleeding, facial contusion. CT of the head, orbit, cervical spine were negative for fractures. X-rays of the ribs noted no fractures. Reviewed exam with patient with recommendations for treatment and follow-up. Patient reported understanding agreed to plan. Lab Data Radiology Impressions Head CT 04/13/24 19:36 IMPRESSION: No evidence of acute intracranial hemorrhage, mass effect, or edema. Orbit CT 04/13/24 19:36 IMPRESSION: 1. No evidence of acute orbital fracture or significant soft tissue abnormality. 2. 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 Cervical Spine CT 04/13/24 19:41 IMPRESSION: No evidence of acute cervical spine fracture or malalignment. Adequate spinal canal and neural foramina. Ribs X-Ray 04/13/24 19:41 IMPRESSION: No displaced rib fractures are seen, but there is limited plain film sensitivity for nondisplaced fractures. Regardless, there is no evidence of pneumothorax, pulmonary parenchymal contusion, or pleural effusion. All radiology interpretation(s) finalized by discharge Discharge Plan Discharge Patient Disposition: Home Clinical Impression: Subconjunctival hemorrhage of right eye Fall Qualifiers: Encounter type: initial encounter Qualified Code(s): W19.XXXA - Unspecified fall, initial encounter Contusion of rib on right side Qualifiers: Encounter type: initial encounter Qualified Code(s): S20.211A - Contusion of right front wall of thorax, initial encounter Traumatic periorbital ecchymosis of right eye Qualifiers: Encounter type: initial encounter Qualified Code(s): S05.11XA - Contusion of eyeball and orbital tissues, right eye, initial encounter Condition: Stable Prescriptions: No Action triamcinolone acetonide 0.1 % ointment 1 applic topical BID Qty: 30 2RF Rx Instructions: to affected finger no more than 3 wks/mo prn losartan-hydrochlorothiazide 100-12.5 mg tablet 1 tab PO DAILY amlodipine 5 mg tablet 5 mg PO DAILY@15 famotidine [Pepcid] 40 mg tablet 40 mg PO BID PRN (Reason: Acid Reflux) latanoprost (PF) 0.005 % drops 1 drop ophthalmic (eye) BEDTIME Rx Instructions: both eyes alendronate 70 mg tablet 70 mg PO Q7D Rx Instructions: takes on mondays gabapentin 300 mg capsule 300 mg PO BID cyanocobalamin (vitamin B-12) 1,000 mcg capsule 1,000 mcg PO DAILY naproxen sodium 220 mg tablet 220 mg PO DAILY PRN (Reason: Pain) acetaminophen 500 mg capsule 500 mg PO Q6H PRN (Reason: Pain) Spiriva Respimat 2.5 mcg/actuation mist 2 inh inhalation QAM TRIMIX INJECTION PRN imiquimod 5 % cream in packet 1 applic topical ONCE Qty: 24 1RF Rx Instructions: apply thin film to affected area Wednesday-Wednesday (off weekends) for 2 weeks. cholecalciferol (vitamin D3) [Vitamin D3] 50 mcg (2,000 unit) Tablet 50 mcg PO DAILY Discharge Orders: Discharge ED (Routine); Ordered 04/13/24 Ordered By: Cipriano Conley Referrals: Deanne Vasquez, [employer] [Primary Care Provider] - Discharge Diet: Usual diet Discharge Activity: Increase activity as tolerated Patient Instructions: Subconjunctival Hemorrhage, Ecchymosis (ED) Activity Restrictions/Additional Instructions: Use cold packs to the area of swelling and bruising to help with discomfort. Use acetaminophen for further pain control. Use [id number] emollient eyedrops to help with irritation of the eye. Follow-up with eye direct care supervisor in 3 days for recheck. Return to ER for new concerns. Coding Level of Care Code ED [employer] for Manny Hearn
--- NOTE | 2024-04-13 19:41 | CTR_ITS ---
PROCEDURE INFORMATION: Exam: CT Cervical Spine Without Contrast Exam date and time: 04/13/2024 8:09 PM Age: 83 years old Clinical indication: Injury or trauma; Fall TECHNIQUE: Imaging protocol: Computed tomography of the cervical spine without contrast. Radiation optimization: All CT scans at this facility use at least one of these dose optimization techniques: automated exposure control; mA and/or kV adjustment per patient size (includes targeted exams where dose is matched to clinical indication); or iterative reconstruction. COMPARISON: CT head wo con* [id number] 04/13/2024 8:09 PM RADIATION DOSE METRICS: Total DLP (mGy-cm): 524.9 FINDINGS: Bones: No evidence of acute cervical spine fracture or traumatic malalignment. There is a somewhat exaggerated cervical lordosis. Advanced craniocervical degenerative change with mild basilar invagination. There is multilevel degenerative disc and facet disease. Adequate spinal canal and neural foramina. Pharynx: Normal fossa of Rosenmuller. Normal tonsillar pillars. Larynx: Normal epiglottis. Symmetric vocal folds. Lungs: Mosaic attenuation noted at each lung apex may reflect air trapping. Soft tissues: Unremarkable. CT/CT cervical spin wo con* [id number] IMPRESSION: No evidence of acute cervical spine fracture or malalignment. Adequate spinal canal and neural foramina.
--- NOTE | 2024-04-13 19:41 | XRR_ITS ---
PROCEDURE INFORMATION: Exam: XR Right Ribs with PA Chest Exam date and time: 04/13/2024 8:54 PM Age: 83 years old Clinical indication: Injury or trauma; Fall; Rib area; Blunt trauma (contusions or hematomas) TECHNIQUE: Imaging protocol: Radiologic exam of the right ribs with PA chest. Views: 3 views COMPARISON: CR XR chest 1V portable [id number] 12/17/2020 6:26 AM FINDINGS: Lungs: Clear, symmetrically inflated lungs. Pleural spaces: No pleural effusion. No pneumothorax. Heart/Mediastinum: Cardiac silhouette is normal in size for technique. Bones/joints: Severe subjective bony demineralization. No acute displaced fractures are appreciated. Old healed fractures of 7th and 8th ribs are noted, unchanged from prior. Advanced glenohumeral arthropathy. XR/XR ribs RT mn 3V w CXR1V [id number] IMPRESSION: No displaced rib fractures are seen, but there is limited plain film sensitivity for nondisplaced fractures. Regardless, there is no evidence of pneumothorax, pulmonary parenchymal contusion, or pleural effusion.
[2024-04-13 20:54] VITALS: BP 130/91; PULSE 90; O2SAT 97
== END 2024-04-13 21:30 | disposition home or self-care (01) ==
PROVIDERS: Emergency Provider Nurse Practitioner Family; PCP Nurse Practitioner
DX: S20.211A Contusion of right front wall of thorax, initial encounter (principal); S05.11XA Contusion of eyeball and orbital tissues, right eye, initial encounter; H11.31 Conjunctival hemorrhage, right eye; Z85.038 Personal history of other malignant neoplasm of large intestine; E78.5 Hyperlipidemia, unspecified; I10 Essential (primary) hypertension; Z87.891 Personal history of nicotine dependence; W19.XXXA Unspecified fall, initial encounter
CPT/HCPCS: 70450; 70480; 71101; 72125; 99284

== ENCOUNTER → 2025-01-15 08:25 | Outpatient (BNVA) | payer OTHER, SELFPAY | PROVIDERS: PCP Nurse Practitioner; Visit Provider Orthopaedic Surgery | DX: M25.531 Pain in right wrist (principal); M67.431 Ganglion, right wrist | CPT/HCPCS: 73110; 99204 ==

== ENCOUNTER → 2025-03-22 11:23 | Outpatient (BNVA) | payer OTHER, SELFPAY | PROVIDERS: PCP Nurse Practitioner; Visit Provider Nurse Practitioner Family | DX: B35.4 Tinea corporis (principal); L82.1 Other seborrheic keratosis; M70.21 Olecranon bursitis, right elbow; M67.441 Ganglion, right hand; L57.8 Other skin changes due to chronic exposure to nonionizing radiation; L81.4 Other melanin hyperpigmentation; L57.0 Actinic keratosis; X32.XXXA Exposure to sunlight, initial encounter | CPT/HCPCS: 17000; 99213 ==